=== PATIENT | male | born 1945 | race Caucasian/White ===

== ENCOUNTER 2018-01-28 08:54 | Inpatient (IN) | payer MEDICARE, OTHER ==
[2018-01-28] MEDS ORDERED: ONDANSETRON 4 MG/2 ML VIAL IVP STA ×2 (08:59→12:11)
[2018-01-28] MEDS ORDERED: FAMOTIDINE 20 MG/2 ML VIAL IV STA (08:59)
[2018-01-28] MEDS ORDERED: SODIUM CHLORIDE 0.9% 1,000 ML IV STA (08:59)
[2018-01-28 09:28] LABS: Basophils % (A) 0 %; Eosinophils # (A) 0.3 k/uL (0-0.7); Eosinophils % (A) 1 %; HCT 47.6 % (39.0-53.0); HGB 15.9 gm/dL (13.0-17.5); Lymphocytes # (A) 1.9 k/uL (1.0-4.8); Lymphocytes % (A) 10 %; MCH 30.9 pg (25.0-35.0); MCHC 33.3 g/dL (31.0-37.0); MCV 92.7 fL (80.0-100.0); Mean Platelet Volume 7.3; Monocytes # (A) 0.8 k/uL (0-1.0); Monocytes % (A) 4 %; Neutrophils # (A) 15.8 k/uL (1.3-7.7); Neutrophils % (A) 84 %; Platelet Count 319 k/uL (150-450); RBC 5.14 m/uL (4.30-5.90); RDW 13.5 % (11.5-15.5); WBC 18.9 k/uL (3.8-10.6)
[2018-01-28 09:34] LABS: ALT 29 U/L (21-72); AST 29 U/L (17-59); Albumin 3.8 g/dL (3.5-5.0); Alkaline Phosphatase 64 U/L (38-126); Anion Gap 10 mmol/L; Blood Urea Nitrogen 16 mg/dL (9-20); Carbon Dioxide 27 mmol/L (22-30); Chloride 105 mmol/L (98-107); Glucose 182 mg/dL (74-99); Potassium 5.1 mmol/L (3.5-5.1); Sodium 142 mmol/L (137-145); Total Bilirubin 0.7 mg/dL (0.2-1.3); Total Protein 6.5 g/dL (6.3-8.2)
[2018-01-28 09:41] LABS: INR 1.1 (<1.2); Partial Thromboplastin Time 21.9 sec (22.0-30.0); Prothrombin Time 10.9 sec (9.0-12.0)
--- NOTE | 2018-01-28 09:52 | ED ---
General Adult HPI - General Chief complaint: Nausea/Vomiting/Diarrhea Stated complaint: nausea, vomiting, poss food poisening Time Seen by Provider: 01/28/18 08:56 Source: patient, RN notes reviewed Mode of arrival: EMS - History of Present Illness Initial comments: Patient 72-year-old male presenting to the emergency room today by EMS, with chief complaint of symptoms of nausea vomiting started approximately midnight. Does admit to eating out last night. States woke up approximately midnight with feeling nauseous. States had approximately 3 or 4 episodes of vomiting. States he had a small amount of diarrhea. Patient does admit to cramping throughout the abdomen. Patient denies any other complaints at this time. Patient denies any recent fever, chills, shortness of breath, chest pain, back pain, numbness or tingling, dysuria or hematuria, constipation, headaches or visual changes, or any other complaints. - Related Data Home Medications Medication Instructions Recorded Confirmed Gabapentin [Neurontin] 300 mg PO DAILY 01/28/18 01/28/18 Simvastatin [Zocor] 10 mg PO HS 01/28/18 01/28/18 Allergies Allergy/AdvReac Type Severity Reaction Status Date / Time Penicillins Allergy Rash/Hives Verified 01/28/18 09:04 Review of Systems ROS Statement: Those systems with pertinent positive or pertinent negative responses have been documented in the HPI. ROS Other: All systems not noted in ROS Statement are negative. Past Medical History Past Medical History: Hyperlipidemia, Pneumonia History of Any Multi-Drug Resistant Organisms: MRSA Date of last positivie culture/infection: 2011 MDRO Source:: hand right Past Surgical History: Hernia Repair Past Psychological History: No Psychological Hx Reported Smoking Status: Former smoker Past Alcohol Use History: None Reported, Rare General Exam - General Exam Comments Initial Comments: General: The patient is awake and alert, in moderate distress. Eye: Pupils are equal, round and reactive to light, extra-ocular movements are intact. No nystagmus. There is normal conjunctiva bilaterally. No signs of icterus. Ears, nose, mouth and throat: There are moist mucous membranes and no oral lesions. Neck: The neck is supple, there is no tenderness or JVD. Cardiovascular: There is a regular rate and rhythm. No murmur, rub or gallop is appreciated. Respiratory: Lungs are clear to auscultation, respirations are non-labored, breath sounds are equal. No wheezes, stridor, rales, or rhonchi. Gastrointestinal: Mild diffuse tenderness throughout the abdomen. No rebound, guarding, CVA tenderness Musculoskeletal: Normal ROM, no tenderness. Strength 5/5. Sensation intact. Pulses equal bilaterally 2+. Neurological: A&O x 3. CN II-XII intact, There are no obvious motor or sensory deficits. Coordination appears grossly intact. Speech is normal. Skin: Skin is warm and dry and no rashes or lesions are noted. Psychiatric: Cooperative, appropriate mood & affect, normal judgment. Course Vital Signs 01/28/18 01/28/18 01/28/18 08:57 09:53 12:11 Temperature 98.1 F Pulse Rate 75 92 Respiratory 18 18 Rate Blood Pressure 153/66 104/57 O2 Sat by Pulse 95 98 Oximetry Medical Decision Making - Medical Decision Making Patient's labs are been reviewed does show an 18,000 white count. Amylase lipase are elevated. Patient's ultrasound shows no evidence for gallstones. Normal common bile duct. Patient reexamined shows no signs of stresses better here in emergency room. Patient will be admitted for acute pancreatitis. Patient's CT of the abdomen and pelvis does reveal evidence for pancreatic tenderness possible admission around the clock. Patient was started on PPI. Continued on IV fluids, pain medication. He ended to the hospital with consult to GI. - Lab Data Result diagrams: 01/28/18 09:18 01/28/18 09:18 Lab Results 01/28/18 01/28/18 01/28/18 Range/Units 09:18 09:18 09:18 WBC 18.9 H (3.8-10.6) k/uL RBC 5.14 (4.30-5.90) m/uL Hgb 15.9 (13.0-17.5) gm/dL Hct 47.6 (39.0-53.0) % MCV 92.7 (80.0-100.0) fL MCH 30.9 (25.0-35.0) pg MCHC 33.3 (31.0-37.0) g/dL RDW 13.5 (11.5-15.5) % Plt Count 319 (150-450) k/uL Neutrophils % 84 % Lymphocytes % 10 % Monocytes % 4 % Eosinophils % 1 % Basophils % 0 % Neutrophils # 15.8 H (1.3-7.7) k/uL Lymphocytes # 1.9 (1.0-4.8) k/uL Monocytes # 0.8 (0-1.0) k/uL Eosinophils # 0.3 (0-0.7) k/uL Basophils # 0.0 (0-0.2) k/uL PT 10.9 (9.0-12.0) sec INR 1.1 (<1.2) APTT 21.9 L (22.0-30.0) sec Sodium 142 (137-145) mmol/L Potassium 5.1 (3.5-5.1) mmol/L Chloride 105 (98-107) mmol/L Carbon Dioxide 27 (22-30) mmol/L Anion Gap 10 mmol/L BUN 16 (9-20) mg/dL Creatinine 1.04 (0.66-1.25) mg/dL Est GFR (CKD-EPI)AfAm 82 (>60 ml/min/1.73 sqM) Est GFR (CKD-EPI)NonAf 71 (>60 ml/min/1.73 sqM) Glucose 182 H (74-99) mg/dL Calcium 9.0 (8.4-10.2) mg/dL Total Bilirubin 0.7 (0.2-1.3) mg/dL AST 29 (17-59) U/L ALT 29 (21-72) U/L Alkaline Phosphatase 64 (38-126) U/L Total Protein 6.5 (6.3-8.2) g/dL Albumin 3.8 (3.5-5.0) g/dL Amylase 3077 H* (30-110) U/L Lipase >35053 H (23-300) U/L Urine Color Urine Appearance (Clear) Urine pH (5.0-8.0) Ur Specific [place] (1.001-1.035) Urine Protein (Negative) Urine Glucose (UA) (Negative) Urine Ketones (Negative) Urine Blood (Negative) Urine Nitrite (Negative) Urine Bilirubin (Negative) Urine Urobilinogen (<2.0) mg/dL Ur Leukocyte Esterase (Negative) 01/28/18 Range/Units 11:15 WBC (3.8-10.6) k/uL RBC (4.30-5.90) m/uL Hgb (13.0-17.5) gm/dL Hct (39.0-53.0) % MCV (80.0-100.0) fL MCH (25.0-35.0) pg MCHC (31.0-37.0) g/dL RDW (11.5-15.5) % Plt Count (150-450) k/uL Neutrophils % % Lymphocytes % % Monocytes % % Eosinophils % % Basophils % % Neutrophils # (1.3-7.7) k/uL Lymphocytes # (1.0-4.8) k/uL Monocytes # (0-1.0) k/uL Eosinophils # (0-0.7) k/uL Basophils # (0-0.2) k/uL PT (9.0-12.0) sec INR (<1.2) APTT (22.0-30.0) sec Sodium (137-145) mmol/L Potassium (3.5-5.1) mmol/L Chloride (98-107) mmol/L Carbon Dioxide (22-30) mmol/L Anion Gap mmol/L BUN (9-20) mg/dL Creatinine (0.66-1.25) mg/dL Est GFR (CKD-EPI)AfAm (>60 ml/min/1.73 sqM) Est GFR (CKD-EPI)NonAf (>60 ml/min/1.73 sqM) Glucose (74-99) mg/dL Calcium (8.4-10.2) mg/dL Total Bilirubin (0.2-1.3) mg/dL AST (17-59) U/L ALT (21-72) U/L Alkaline Phosphatase (38-126) U/L Total Protein (6.3-8.2) g/dL Albumin (3.5-5.0) g/dL Amylase (30-110) U/L Lipase (23-300) U/L Urine Color Light Yellow Urine Appearance Clear (Clear) Urine pH 7.5 (5.0-8.0) Ur Specific [place] 1.008 (1.001-1.035) Urine Protein Negative (Negative) Urine Glucose (UA) Trace H (Negative) Urine Ketones Negative (Negative) Urine Blood Negative (Negative) Urine Nitrite Negative (Negative) Urine Bilirubin Negative (Negative) Urine Urobilinogen <2.0 (<2.0) mg/dL Ur Leukocyte Esterase Negative (Negative) Disposition Clinical Impression: Acute pancreatitis Disposition: ADMITTED IP TO THIS HOSP Condition: Stable Is patient prescribed a controlled substance at d/c from ED?: No Referrals: [facility],Clinic [Primary Care Provider] - 1-2 days Time of Disposition: 11:22
[2018-01-28 10:00] LABS: Amylase 3077 U/L (30-110)
[2018-01-28 10:01] LABS: Lipase >20000 U/L (23-300)
[2018-01-28] MEDS ORDERED: ACETAMINOPHEN IV (For NPO) 1,000 MG in EMPTY BAG 1 BAG IVPB STA (10:01)
--- NOTE | 2018-01-28 10:12 | XR ---
EXAMINATION TYPE: XR KUB DATE OF EXAM: 01/28/2018 COMPARISON: NONE HISTORY: Abdominal pain and vomiting TECHNIQUE: One view abdominal series FINDINGS: The osseous structures are intact. The bowel gas pattern is nonspecific. Upper abdomen is not includ ed on exam. Hypertrophic changes of the spine noted.. IMPRESSION: 1. Nonspecific abdomen.
--- NOTE | 2018-01-28 11:00 | US ---
EXAMINATION TYPE: US abdomen limited DATE OF EXAM: 01/28/2018 COMPARISON: NONE CLINICAL HISTORY: Pain. Abdomen pain and N/V x 1 day EXAM MEASUREMENTS: Liver Length: 15.3 cm Gallbladder Wall: 0.3 cm CBD: 0.4 cm Right Kidney: 11.3 x 5.7 x 5.0 cm Technically difficult and very limited study due to large amount of overlying bowel, exam scanned m ostly intercostally, and patient unable to hold breath due to coughing Pancreas: obscured by overlying midline bowel Liver: scanned intercostally, 2.1 x 1.8 x 1.6cm cystic area seen right lobe Gallbladder: no stones seen in visualized portion, visualized portion of wall measures in upper limi ts of normal Evidence for sonographic Zuleta's sign: yes CBD: visualized portions appear wnl Right Kidney: visualized portions appear wnl IMPRESSION: 1. Limited exam demonstrates a hepatic cyst with no definite evidence of gallstone.
[2018-01-28 11:21] LABS: Appearance,Urine Clear (Clear); Bilirubin,Urine Negative (Negative); Blood,Urine Negative (Negative); Color,Urine Light Yellow; Glucose,Urine (UA) Trace (Negative); Ketones,Urine Negative (Negative); Leukocyte Esterase,Urine Negative (Negative); Nitrite,Urine Negative (Negative); PH, Urine 7.5 (5.0-8.0); Protein,Urine Negative (Negative); Specific Gravity,Urine 1.008 (1.001-1.035); Urobilinogen,Urine <2.0 mg/dL (<2.0)
[2018-01-28] MEDS ORDERED: MORPHINE SULFATE 2 MG/ML SYRINGE IVP STA (12:11)
--- NOTE | 2018-01-28 12:55 | CT ---
EXAMINATION TYPE: CT abdomen pelvis w con DATE OF EXAM: 01/28/2018 COMPARISON: NONE HISTORY: nausea, vomitting and possiible food poisoning CT DLP: 896.10 mGycm Automated exposure control for dose reduction was used. CONTRAST: CT scan of the abdomen pelvis is performed with IV Contrast, patient injected with 100 ml mL of Isovu e 300. FINDINGS- LUNG BASES-subsegmental changes involving the lung bases suggestive of atelectasis. Tiny pericardial effusion is seen in the heart size is enlarged. Atherosclerotic change of the aorta.. LIVER/GB-hypodensities within the liver are suggestive of hepatic cysts.. PANCREAS-there is peripancreatic inflammatory change and small amount of fluid. Pancreatitis is favor ed over peptic ulcer disease but should be correlated clinically. SPLEEN- No gross abnormality is seen. ADRENALS- No gross abnormality is seen. KIDNEYS/BLADDER- no hydronephrosis or nephrolithiasis. There is a small hypodensity in the anterior m argin of the left kidney too small to characterize.. BOWEL-bowel gas pattern is nonspecific. There is thickening of the wall the duodenum but there is ext ensive peripancreatic inflammatory changes.. LYMPH NODES- No greater than 1cm abdominal or pelvic lymph nodes are appreciated. OSSEOUS STRUCTURES-atrophic change of the spine.. OTHER- small fat-containing inguinal hernias noted. IMPRESSION- 1. Extensive peripancreatic inflammatory changes and small amount of fluid. Pancreatitis is the most likely etiology. There is inflammatory change also involves the duodenum, therefore, peptic ulcer di sease would also be in the differential diagnosis. No free air. Correlate clinically. 2. Hepatic cysts
[2018-01-28] MEDS ORDERED: NALOXONE 0.4 MG/ML 1 ML VIAL IV PRN (13:01)
[2018-01-28] MEDS ORDERED: PANTOPRAZOLE 40 MG/10 ML VIAL IVP STA (13:07)
[2018-01-28] MEDS: SODIUM CHLORIDE 0.9% 1,000 ML IV SCH ×2 (13:32→22:14)
[2018-01-28] MEDS: HYDROcodone/APAP 5-325MG 1 EACH TAB PO PRN ×3 (15:13→22:40)
[2018-01-28 16:26] VITALS: BMI 25.0
[2018-01-28] MEDS: ONDANSETRON 4 MG/2 ML VIAL IVP PRN (16:38)
[2018-01-28] MEDS: MORPHINE SULFATE 2 MG/ML SYRINGE IV PRN (19:55)
[2018-01-28] MEDS: GABAPENTIN 300 MG CAP PO SCH (21:08)
[2018-01-29] MEDS: MORPHINE SULFATE 2 MG/ML SYRINGE IV PRN ×5 (00:07→23:19)
[2018-01-29] MEDS: ONDANSETRON 4 MG/2 ML VIAL IVP PRN (00:14)
[2018-01-29] MEDS: SODIUM CHLORIDE 0.9% 1,000 ML IV SCH ×3 (05:40→20:16)
[2018-01-29] MEDS: PANTOPRAZOLE 40 MG/10 ML VIAL IVP SCH (08:06)
[2018-01-29] MEDS: HYDROcodone/APAP 5-325MG 1 EACH TAB PO PRN (08:37)
[2018-01-29 08:51] LABS: HCT 50.9 % (39.0-53.0); HGB 16.3 gm/dL (13.0-17.5); MCHC 32.1 g/dL (31.0-37.0); MCV 93.4 fL (80.0-100.0); Mean Platelet Volume 7.6; Platelet Count 304 k/uL (150-450); RBC 5.45 m/uL (4.30-5.90); RDW 13.6 % (11.5-15.5)
[2018-01-29 08:55] LABS: WBC 43.1 k/uL (3.8-10.6)
[2018-01-29 08:58] LABS: Albumin 3.3 g/dL (3.5-5.0); Calcium 7.9 mg/dL (8.4-10.2); Potassium 4.5 mmol/L (3.5-5.1); Total Bilirubin 0.8 mg/dL (0.2-1.3); Total Protein 5.9 g/dL (6.3-8.2)
[2018-01-29 09:07] LABS: Band Neutrophils % 4 %; Lymphocytes # (M) 0.43 k/uL (1.0-4.8); Monocytes # (M) 1.29 k/uL (0-1.0); Neutrophils % (M) 92 %; Nucleated Red Blood Cells 0 /100 WBC (0-0); Total Cells Counted 200
[2018-01-29] MEDS: PIPERACILLIN-TAZOBACTAM 3.375 GM in DEXTROSE/WATER 1 50ML.BAG IVPB SCH ×2 (11:16→17:14)
[2018-01-29] MEDS: metroNIDAZOLE-NS PMX 500 MG in SALINE 1 100ML.BAG IVPB SCH ×3 (11:17→23:03)
--- NOTE | 2018-01-29 12:55 | P.HPIM ---
History of Present Illness H&P Date: 01/29/18 Chief Complaint: Nausea, vomiting and abdominal pain Patient 72-year-old male presenting to the emergency room today by EMS, with chief complaint of symptoms of nausea vomiting started approximately midnight. Does admit to eating out last night. States woke up approximately midnight with feeling nauseous. States had approximately 3 or 4 episodes of vomiting. States he had a small amount of diarrhea. Patient does admit to cramping throughout the abdomen. Patient denies any other complaints at this time. Patient denies any recent fever, chills, shortness of breath, chest pain, back pain, numbness or tingling, dysuria or hematuria, constipation, headaches or visual changes, or any other complaints. Review of Systems Constitutional: Reports anorexia, Reports poor appetite, Reports weakness, Denies fever Eyes: denies blurred vision, denies discharge, denies photophobia Ears, nose, mouth and throat: Denies epistaxis, Denies hoarseness Cardiovascular: Denies chest pain, Denies dyspnea on exertion, Denies high blood pressure, Denies irregular heart beat, Denies shortness of breath, Denies syncope Respiratory: Denies cough with sputum, Denies wheezing Gastrointestinal: Reports abdominal pain, Reports indigestion, Reports loss of appetite, Reports nausea, Reports vomiting, Denies coffee ground emesis, Denies diarrhea, Denies melena Genitourinary: Denies dysuria, Denies hematuria, Denies incontinence, Denies polyuria Musculoskeletal: Denies leg numbness/tingling, Denies morning stiffness Integumentary: Denies change in hair/nails, Denies darkening of skin, Denies rash Neurological: Denies change in smell/taste, Denies change in speech, Denies confusion, Denies gait dysfunction Psychiatric: Reports anxiety, Reports irritability, Denies confusion Endocrine: Reports palpitations, Denies cold intolerance, Denies heat intolerance Hematologic/Lymphatic: Denies easy bleeding, Denies easy bruising Past Medical History Past Medical History: Hyperlipidemia, Osteoarthritis (OA), Pneumonia History of Any Multi-Drug Resistant Organisms: MRSA Date of last positivie culture/infection: 2011 MDRO Source:: hand right Past Surgical History: Hernia Repair Past Psychological History: No Psychological Hx Reported Smoking Status: Former smoker Past Alcohol Use History: Rare Past Drug Use History: None Reported - Past Family History Father Additional Family Medical History / Comment(s): dementia, at age 83 Mother Family Medical History: Hyperlipidemia Additional Family Medical History / Comment(s): heart valve proble per patient, at age 96 Medications and Allergies Home Medications Medication Instructions Recorded Confirmed Type Atorvastatin [Lipitor] 10 mg PO HS 01/28/18 01/28/18 History Gabapentin [Neurontin] 300 mg PO HS 01/28/18 01/28/18 History Allergies Allergy/AdvReac Type Severity Reaction Status Date / Time Penicillins Allergy Rash/Hives Verified 01/28/18 13:17 Physical Exam Vitals: Vital Signs Temp Pulse Pulse Resp BP BP Pulse Ox 01/29/18 06:03 92 L 01/29/18 06:02 99.2 F 107 H 16 98/58 87 L 01/29/18 02:06 94 L 01/29/18 02:00 88 L 01/28/18 23:00 98.6 F 108 H 18 150/72 88 L 01/28/18 16:20 97.3 F L 86 18 122/64 93 L 01/28/18 16:00 18 01/28/18 15:57 97 F L 87 18 122/65 95 01/28/18 13:41 96.8 F L 90 18 125/59 95 Intake and Output 01/28/18 01/29/18 01/29/18 22:59 06:59 14:59 Output Total 75 125 Balance -75 -125 Output: Urine 75 125 Other: # Voids 0 0 # Bowel Movements 0 0 1 Weight 83.915 kg - Constitutional General appearance: Present: average body habitus, cooperative, no acute distress - EENT Eyes: Present: anicteric sclerae, EOMI, PERRLA, normal appearance ENT: Present: hearing grossly normal, normal oropharynx Ears: bilateral: normal - Neck Neck: Present: normal ROM. Absent: lymphadenopathy, rigidity, thyromegaly Carotids: negative: bruit present Thyroid: bilateral: normal size, negative: enlarged, nodule - Respiratory Respiratory: bilateral: CTA, negative: rales, rhonchi, wheezing - Cardiovascular Rhythm: regular Heart sounds: normal: S1, S2 Abnormal Heart Sounds: Absent: systolic murmur, diastolic murmur - Gastrointestinal General gastrointestinal: Present: normal bowel sounds, soft. Absent: distended , organomegaly; marked diffuse tenderness - Genitourinary Genitourinary Comment(s): deferred - Integumentary Integumentary: Present: normal turgor. Absent: jaundiced, rash, ulcer - Neurologic Neurologic: Present: CNII-XII intact. Absent: focal deficits - Musculoskeletal Musculoskeletal: Present: gait normal, strength equal bilaterally - Psychiatric Psychiatric: Present: A&O x's 3, appropriate affect, intact judgment & insight Results CBC & Chem 7: 01/29/18 07:50 01/29/18 07:50 Labs: Abnormal Lab Results - Last 24 Hours (Table) 01/29/18 01/29/18 Range/Units 07:50 07:50 WBC 43.1 H* (3.8-10.6) k/uL Neutrophils # (Manual) 41.30 H (1.3-7.7) k/uL Lymphocytes # (Manual) 0.43 L (1.0-4.8) k/uL Monocytes # (Manual) 1.29 H (0-1.0) k/uL Calcium 7.9 L (8.4-10.2) mg/dL Total Protein 5.9 L (6.3-8.2) g/dL Albumin 3.3 L (3.5-5.0) g/dL Lipase 5810 H (23-300) U/L Thrombosis Risk Factor Assmnt - Choose All That Apply Other Risk Factors: Yes Each Risk Factor Represents 2 Points: Age 61-74 years Thrombosis Risk Factor Assessment Total Risk Factor Score: 2 Thrombosis Risk Factor Assessment Level: Low Risk Assessment and Plan Assessment: 1. Acute pancreatitis - We will admit patient to general medical floor - We will start patient on IV fluids; IV Pepcid - We will monitor his lipase closely - GI consulted for further recommendations 2. Leukocytosis possibly stress-induced versus sepsis - Patient's white blood count has escalated to 43,000; patient does have a low- grade temperature - We will monitor CBC closely and initiate sepsis workup - We will start patient on IV Unasyn and Flagyl - Consult ID for further recommendations 3. Hyperglycemia possibly secondary to 1 - We will monitor Accu-Cheks closely with insulin sliding scale if needed 4. Hyperlipidemia; we will hold on home dose of Zocor 10 mg by mouth daily at bedtime 5. DVT prophylaxis CODE STATUS; full code Time with Patient: Greater than 30
[2018-01-29] MEDS: GABAPENTIN 300 MG CAP PO SCH (20:17)
[2018-01-29] MEDS: ACETAMINOPHEN TAB 325 MG TAB PO PRN (23:20)
[2018-01-30] MEDS: PIPERACILLIN-TAZOBACTAM 3.375 GM in DEXTROSE/WATER 1 50ML.BAG IVPB SCH ×3 (02:29→18:58)
--- NOTE | 2018-01-30 02:49 | CONS ---
CONSULTATION DATE OF SERVICE: 01/29/2018. REASON FOR CONSULTATION: Leukocytosis and pancreatitis. HISTORY OF PRESENT ILLNESS: The patient is a 72-year-old male who was brought into the ER with chief complaints of nausea, vomiting that approximately started around midnight before presenting to the hospital. The pain has been mostly in the abdominal area. He describes the pain to be more of a cramping in nature and almost 10/10 in severity. The patient did have associated nausea and had about 3 episodes of vomiting before coming to the hospital with no blood or mucus in it. The patient also had loose stools. The patient denies any high-grade fever, rigors or chills. Denies having any chest pain or shortness of breath or any cough. The patient did admit to eating outside nothing out of the ordinary. On arrival to the ER the patient was noticed to be afebrile. He did have elevated white count of 18.9, though his amylase was 3077 and lipase was more than 20,000. UA has been negative. The patient did have an ultrasound of the gallbladder area which did not show any gallstones and CBD was within normal limits. CT abdomen and pelvis which was done with IV contrast did show peripancreatic inflammation changes with a small amount of fluid, pancreatitis is favored or peptic ulcer disease. The patient has been started on Flagyl because of his PENICILLIN ALLERGY only. The patient who did have a white count of 18.9 yesterday, did jump to 43.1 that prompted this infectious disease consultation. REVIEW OF SYSTEMS: Constitutional: Positive for weakness. Some chills but no high-grade fever. Eyes: No complaint. ENT: No complaint. Respiratory: No complaint. Cardiovascular: No complaint. Genitourinary: No complaint. GASTROINTESTINAL: As per HPI. Musculoskeletal: No complaint. Integumentary: No complaint. Psychological: No complaint. Endocrine no complaint. Neurologic no complaint. PAST MEDICAL HISTORY: Significant for hyperlipidemia, osteoarthritis, pneumonia, previous history of MRSA infection. PAST SURGICAL HISTORY: Hernia repair. SOCIAL HISTORY: Remote history of smoking. Rarely drinks. No drug use. FAMILY HISTORY: Father history of dementia, at age of 83. Mother history of hyperlipidemia, at age of 96. ALLERGIES: TO PENICILLIN when he was a child. However, dementia subsequently has started taken amoxicillin without any problem. Clinically doubt true penicillin allergy. MEDICATION: Medications include the patient is currently on Tylenol, [place], Neurontin, Ativan, Flagyl, morphine sulfate, Narcan, Zofran, Protonix, and Zosyn early this morning. EXAMINATION: Blood pressure is 127/72 with a pulse of 114, temperature 98.5. He is 90% on 2 L nasal cannula. General description is an elderly male lying in bed in no distress. No tachypnea or accessory muscles of respiration use. HEENT: Shows no pallor or scleral icterus. Oral mucous membranes moist. No significantly erythema or thrush. Neck trachea central. No thyromegaly. Lungs unlabored breathing, clear to auscultation anteriorly. No wheeze or crackles. Heart S1, S2. Regular rate and rhythm. ABDOMEN: Soft. He is tender in the epigastric area with no guarding. No rigidity. No organomegaly. EXTREMITIES: No edema of the feet. Skin examination: No rash or mass palpable. Neurological: Patient is awake, alert, oriented times three. Mood and affect normal. LABS: Hemoglobin 16.3 with white count 43,000 with a BUN of 15, creatinine 1.03. Amylase was 3000. Lipase more than 20,000. Repeat is 5800. A CT of the abdomen and pelvis report as mentioned above. DIAGNOSTIC IMPRESSION AND PLAN: 1. Patient presented in the hospital with significant abdominal pain along with nausea and vomiting. The patient is tender in the epigastric area. The patient who did have a elevated amylase, lipase, likely suggestive of acute pancreatitis on the basis of the clinical finding as well as the CT finding with some peripancreatic fluid, but no evidence of any abscess or pseudocyst formation. The patient currently with no fever. In view of the severe pancreatitis, we will need to cover for the enteric gram-negative both aerobes and anaerobes with no evidence of any cholecystitis or gallstones. 2. The patient describing his PENICILLIN ALLERGY, however, subsequently has taken amoxicillin. Clinically doubt true penicillin allergy. PLAN: 1. Zosyn 3.375 g q.8 hours along with IV Flagyl. 2. N.p.o. 3. We will follow up on his clinical condition to further adjust medication if needed. Thank you for this consultation. We will follow this patient along with you. MMODL / IJN: [id number] /
[2018-01-30] MEDS: SODIUM CHLORIDE 0.9% 1,000 ML IV SCH ×6 (05:27→17:03)
[2018-01-30] MEDS: HYDROcodone/APAP 5-325MG 1 EACH TAB PO PRN ×3 (06:28→17:32)
[2018-01-30] MEDS: metroNIDAZOLE-NS PMX 500 MG in SALINE 1 100ML.BAG IVPB SCH ×3 (06:33→17:02)
--- NOTE | 2018-01-30 07:28 | P.CONS ---
History of Present Illness - Reason for Consult Consult date: 01/29/18 Acute pancreatitis. - History of Present Illness The patient is a 72-year-old male who presented to the hospital via EMS with acute onset of abdominal pain that started around midnight associated with nausea and vomiting. The patient was found to have elevated amylase and lipase with normal liver enzymes. CT of the abdomen showed evidence of pancreatitis. The patient was admitted for further management. CT did not show any evidence of gallbladder disease or dilated common bile duct. The patient denied any history of alcohol use or any recent surgery, abdominal trauma or new medications. No recent infection or any abdominal symptoms to suggest peptic ulcer disease. Review of Systems Constitutional: Denies fever, chills, sweats, weight gain, or loss. HEENT: Negative for migraines, blurred vision or loss, earaches, drainage, tinnitus, oral mucosal lesions, dysphagia, or odynophagia. CARDIAC: Negative for chest pain, arrhythmias, or palpitation. RESPIRATORY: Negative for shortness of breath, hemoptysis, cough, or sputum production. GI: See HPI for pertinent findings. : Negative for hematuria, urgency, frequency, polyuria, or dysuria. MUSCULOSKELETAL: Negative for muscle aches, swelling, arthritis, and arthralgias. NEUROLOGIC: Negative for stroke or TIA. ENDOCRINE: Negative for thyroid problems. SKIN: Negative for rash or itching. PSYCHIATRIC: Negative history for depression and anxiety Past Medical History Past Medical History: Hyperlipidemia, Osteoarthritis (OA), Pneumonia History of Any Multi-Drug Resistant Organisms: MRSA Year Discovered:: 2011 MDRO Source:: hand right Past Surgical History: Hernia Repair Past Psychological History: No Psychological Hx Reported Smoking Status: Former smoker Past Alcohol Use History: Rare Past Drug Use History: None Reported - Past Family History Father Additional Family Medical History / Comment(s): dementia, at age 83 Mother Family Medical History: Hyperlipidemia Additional Family Medical History / Comment(s): heart valve proble per patient, at age 96 Medications and Allergies Home Medications Medication Instructions Recorded Confirmed Type Atorvastatin [Lipitor] 10 mg PO HS 01/28/18 01/28/18 History Gabapentin [Neurontin] 300 mg PO HS 01/28/18 01/28/18 History Allergies Allergy/AdvReac Type Severity Reaction Status Date / Time Penicillins Allergy Rash/Hives Verified 01/28/18 13:17 Physical Exam Vitals: Vital Signs Temp Pulse Pulse Resp BP BP Pulse Ox 01/29/18 06:03 92 L 01/29/18 06:02 99.2 F 107 H 16 98/58 87 L 01/29/18 02:06 94 L 01/29/18 02:00 88 L 01/28/18 23:00 98.6 F 108 H 18 150/72 88 L 01/28/18 16:20 97.3 F L 86 18 122/64 93 L 01/28/18 16:00 18 01/28/18 15:57 97 F L 87 18 122/65 95 01/28/18 13:41 96.8 F L 90 18 125/59 95 Intake and Output 01/28/18 01/29/18 01/29/18 22:59 06:59 14:59 Output Total 75 125 Balance -75 -125 Output: Urine 75 125 Other: # Voids 0 0 2 # Bowel Movements 0 0 1 Weight 83.915 kg General appearance: The patient is alert, oriented, in no acute distress. HET: Head is normocephalic and atraumatic. Pupils are equal and reactive. Oropharynx is clear without lesions. Neck: Supple without lymphadenopathy. Trachea midline. Heart: S1 S2. Regular rate and rhythm. Lungs: No crackles or wheezes are heard. Abdomen: Soft, very mild soreness in the midepigastrium, nondistended with bowel sounds. No peritoneal signs. No palpable organomegaly or masses. Extremities: Normal skin color and turgor. No cyanosis, rash, ulceration, clubbing, or edema. Radial and pedal pulses are 2/4 bilaterally. Neurological: No focal deficits. Strength and sensation are grossly intact. Results CBC & Chem 7: 01/29/18 07:50 01/29/18 07:50 Labs: Abnormal Lab Results - Last 24 Hours (Table) 01/29/18 01/29/18 Range/Units 07:50 07:50 WBC 43.1 H* (3.8-10.6) k/uL Neutrophils # (Manual) 41.30 H (1.3-7.7) k/uL Lymphocytes # (Manual) 0.43 L (1.0-4.8) k/uL Monocytes # (Manual) 1.29 H (0-1.0) k/uL Calcium 7.9 L (8.4-10.2) mg/dL Total Protein 5.9 L (6.3-8.2) g/dL Albumin 3.3 L (3.5-5.0) g/dL Lipase 5810 H (23-300) U/L Assessment and Plan Assessment: Acute pancreatitis with no clear etiology. Should keep in mind penetrating ulcer disease. In his age group malignancy should be considered despite the absence of any specific findings on CT. Plan: I agree with your current management. The patient is covered with antibiotics because of significant leukocytosis. Further plans will be made based on his course. I will discuss with you and follow with you with interest.
[2018-01-30] MEDS: PANTOPRAZOLE 40 MG/10 ML VIAL IVP SCH (07:46)
[2018-01-30 08:15] LABS: Amorphous Sediment,Urine Rare /hpf; Appearance,Urine Cloudy (Clear); Bilirubin,Urine Negative (Negative); Blood,Urine Small (Negative); Color,Urine Yellow; Glucose,Urine (UA) Negative (Negative); Hyaline Casts,Urine 1 /lpf (0-2); Ketones,Urine 1+ (Negative); Leukocyte Esterase,Urine Negative (Negative); Mucus,Urine Rare /hpf; Nitrite,Urine Negative (Negative); PH, Urine 5.5 (5.0-8.0); Protein,Urine 2+ (Negative); RBC,Urine 6 /hpf (0-5); Specific Gravity,Urine 1.028 (1.001-1.035); Urobilinogen,Urine <2.0 mg/dL (<2.0); WBC,Urine 3 /hpf (0-5)
--- NOTE | 2018-01-30 08:59 | P.PN ---
Subjective Progress Note Date: 01/30/18 Principal diagnosis: Severe pancreatitis Abdominal pain slightly improved. White count 43.1 yesterday. T-max 101.4 last night seen by ID. Receiving IV antibiotics. Morning chemistries pending. Objective - Vital Signs Vital signs: Vital Signs Temp 99.2 F 01/30/18 06:17 Pulse 106 H 01/30/18 06:17 Resp 16 01/30/18 06:17 BP 138/74 01/30/18 06:17 Pulse Ox 92 L 01/30/18 06:17 Intake & Output 01/29/18 01/30/18 01/30/18 18:59 06:59 18:59 Output Total 200 175 Balance -200 -175 Output: Urine 200 175 Other: # Voids 1 0 # Bowel Movements 1 - Exam General appearance: The patient is alert, oriented, in no acute distress. HET: Head is normocephalic and atraumatic. Pupils are equal and reactive. Oropharynx is clear without lesions. Neck: Supple without lymphadenopathy. Trachea midline. Heart: S1 S2. Regular rate and rhythm. Lungs: No crackles or wheezes are heard. Abdomen: Soft, midepigastric tenderness, nondistended with bowel sounds. No peritoneal signs. No palpable organomegaly or masses. Extremities: Normal skin color and turgor. No cyanosis, rash, ulceration, clubbing, or edema. Radial and pedal pulses are 2/4 bilaterally. Neurological: No focal deficits. Strength and sensation are grossly intact. - Labs CBC & Chem 7: 01/29/18 07:50 01/29/18 07:50 Labs: Abnormal Lab Results - Last 24 Hours (Table) 01/29/18 01/29/18 01/30/18 Range/Units 07:50 07:50 05:30 Neutrophils # (Manual) 41.30 H (1.3-7.7) k/uL Lymphocytes # (Manual) 0.43 L (1.0-4.8) k/uL Monocytes # (Manual) 1.29 H (0-1.0) k/uL Calcium 7.9 L (8.4-10.2) mg/dL Total Protein 5.9 L (6.3-8.2) g/dL Albumin 3.3 L (3.5-5.0) g/dL Lipase 5810 H (23-300) U/L Urine Protein 2+ H (Negative) Urine Ketones 1+ H (Negative) Urine Blood Small H (Negative) Urine RBC 6 H (0-5) /hpf Amorphous Sediment Rare H (None) /hpf Urine Mucus Rare H (None) /hpf Assessment and Plan (1) Acute pancreatitis Narrative/Plan: Severe sepsis Current Visit: Yes Status: Acute Code(s): K85.90 - ACUTE PANCREATITIS [facility] NECROSIS OR INFECTION[facility] Code(s): 469316913 Plan: 1. IV fluids 150 mL an hour. IV antibiotics. Daily CBC pancreatic enzymes. 2. Nothing by mouth except medications ice chips. Protonix 40 mg IV daily. Consideration for inpatient EGD prior to discharge rule out peptic ulcer disease etiology. We'll follow closely with you. Assessment and plan a care discussed with Dr. Westbrook
[2018-01-30] MEDS: MORPHINE SULFATE 2 MG/ML SYRINGE IV PRN ×3 (09:39→20:48)
[2018-01-30 10:06] LABS: Basophils % (A) 0 %; Eosinophils # (A) 0.1 k/uL (0-0.7); Eosinophils % (A) 0 %; HCT 44.4 % (39.0-53.0); HGB 14.5 gm/dL (13.0-17.5); Lymphocytes # (A) 0.4 k/uL (1.0-4.8); Lymphocytes % (A) 1 %; MCH 30.4 pg (25.0-35.0); MCHC 32.6 g/dL (31.0-37.0); MCV 93.3 fL (80.0-100.0); Mean Platelet Volume 7.9; Monocytes # (A) 1.3 k/uL (0-1.0); Monocytes % (A) 3 %; Neutrophils # (A) 37.8 k/uL (1.3-7.7); Neutrophils % (A) 95 %; Platelet Count 225 k/uL (150-450); RBC 4.76 m/uL (4.30-5.90); RDW 13.5 % (11.5-15.5)
[2018-01-30 10:17] LABS: WBC 39.8 k/uL (3.8-10.6)
[2018-01-30 10:25] LABS: Albumin 2.5 g/dL (3.5-5.0); Bilirubin, Delta 0.3 mg/dL (0.0-0.2); Bilirubin,Unconjugated 0.5 mg/dL (0.0-1.1); Calcium 7.2 mg/dL (8.4-10.2); Potassium 4.2 mmol/L (3.5-5.1); Total Bilirubin 0.8 mg/dL (0.2-1.3); Total Protein 4.8 g/dL (6.3-8.2)
[2018-01-30] MEDS: LORazepam 2 MG/ML INJ IV PRN (18:54)
[2018-01-30] MEDS: GABAPENTIN 300 MG CAP PO SCH (20:48)
--- NOTE | 2018-01-30 21:53 | PN ---
PROGRESS NOTE DATE OF SERVICE: 01/30/2018. REASON FOR FOLLOWUP: Acute pancreatitis with sepsis. INTERVAL HISTORY: The patient did spike a fever of 101.4 degrees Fahrenheit. He is afebrile since then. He did mention that abdominal pain has slightly improved. Denies having any chest pain. No shortness of breath or cough. No abdominal pain or any diarrhea. EXAMINATION: Blood pressure is 138/79, pulse of 94, temperature 98.1, T-max of 101.4. He is 91% on 2L nasal cannula. General description is an elderly male lying in bed in no distress. RESPIRATORY SYSTEM: Unlabored breathing. Clear to auscultation anteriorly. HEART: S1, S2. Regular rate and rhythm. ABDOMEN: Soft, mildly distended in the epigastric area. No guarding. No rigidity. EXTREMITIES: No edema of feet. LABS: Hemoglobin 14.5, white count slightly down to 39.8. BUN of 22, creatinine is 1.19. Amylase and lipase have improved. Cultures are currently pending. DIAGNOSTIC IMPRESSION AND PLAN: Patient with sepsis, source is acute pancreatitis. The patient at this time is covered with Zosyn. Will monitor his cultures closely and continue supportive care. MMODL / IJN: [id number] /
[2018-01-30 23:33] LABS: Glucose,Whole Blood 87 mg/dL (75-99)
[2018-01-31 00:05] LABS: ABG Base Excess 0.3 mmol/L; ABG HCO3 25 mmol/L (21-25); ABG Oxygen Saturation 94.8 % (94-97); ABG PCO2 40 mmHg (35-45); ABG PO2 67 mmHg (83-108); ABG TCO2 26 mmol/L (19-24)
[2018-01-31] MEDS: LORazepam 2 MG/ML INJ IV PRN ×3 (00:17→11:12)
[2018-01-31] MEDS: metroNIDAZOLE-NS PMX 500 MG in SALINE 1 100ML.BAG IVPB SCH ×5 (00:19→23:51)
[2018-01-31] MEDS: SODIUM CHLORIDE 0.9% 1,000 ML IV SCH ×4 (01:43→21:44)
--- NOTE | 2018-01-31 02:03 | CT ---
EXAMINATION TYPE: CT brain wo con DATE OF EXAM: 01/31/2018 COMPARISON: NONE HISTORY: AMS CT DLP: 1110.20 mGycm Automated exposure control for dose reduction was used. FINDINGS: Ventricles of normal size. There is no mass effect nor midline shift. There is no sign of intracrania l hemorrhage. Calvarium is intact. IMPRESSION: HEAD CT SCAN APPEARS NORMAL FOR AGE.
--- NOTE | 2018-01-31 02:05 | CT ---
EXAMINATION TYPE: CT chest angio for PE DATE OF EXAM: 01/31/2018 COMPARISON: NONE HISTORY: 13.73 D-dimer with SOB CT DLP: 590.90 mGycm Automated exposure control for dose reduction was used. CONTRAST: CT Chest for pulmonary embolism performed with with IV Contrast, patient injected with 75 mL of Isovu e 370. FINDINGS: There are 3-D post processed images. There are bilateral pleural effusions with basilar pulmonary infiltrates and atelectasis. There is sm all pericardial effusion. Ascending aorta measures 3.8 cm. There is no evidence of dissection. I see no filling defects in the pulmonary arteries. There is no mediastinal adenopathy. There are no hilar masses. IMPRESSION: No evidence of pulmonary embolism. Pleural effusions and small pericardial effusion. Mild basilar pulmonary infiltrates and atelectasis.
[2018-01-31] MEDS: HYDROcodone/APAP 5-325MG 1 EACH TAB PO PRN ×2 (02:43→09:42)
[2018-01-31] MEDS: PIPERACILLIN-TAZOBACTAM 3.375 GM in DEXTROSE/WATER 1 50ML.BAG IVPB SCH ×3 (02:43→17:58)
[2018-01-31] MEDS ORDERED: HEPARIN SODIUM,PORCINE 5,000 UNIT/ML 1 ML VIAL IV STA (04:41)
--- NOTE | 2018-01-31 06:58 | US ---
EXAM: US Duplex Bilateral Lower Extremity Veins CLINICAL HISTORY: ITS.REASON US Reason: Elevated D-Dimer TECHNIQUE: Real-time duplex ultrasound scan of the bilateral lower extremity veins integrating B-mode two-dimensional vascular structure, Doppler spectral analysis, color flow Doppler imaging and compression. COMPARISON: None. FINDINGS: Right deep veins: Unremarkable. No DVT in the right common femoral, femoral, proximal deep femoral or popliteal veins. The veins demonstrate normal color flow, are normally compressible, with normal phasic flow and/or augmentation response. Right superficial veins: Unremarkable. No thrombus in the visualized right great saphenous vein. Left deep veins: Unremarkable. No DVT in the left common femoral, femoral, proximal deep femoral or popliteal veins. The veins demonstrate normal color flow, are normally compressible, with normal phasic flow and/or augmentation response. Left superficial veins: Unremarkable. No thrombus in the visualized left great saphenous vein. Soft tissues: No acute findings. No popliteal cyst. Other findings: IMPRESSION: No acute findings.
[2018-01-31] MEDS: HEPARIN SODIUM,PORCINE 5,000 UNIT/ML 1 ML VIAL SQ SCH ×2 (07:10→21:43)
[2018-01-31] MEDS: PANTOPRAZOLE 40 MG/10 ML VIAL IVP SCH (07:11)
--- NOTE | 2018-01-31 08:14 | P.PN ---
Subjective Progress Note Date: 01/31/18 Principal diagnosis: Severe pancreatitis Increased confusion yesterday last night elevated d-dimer. CTA venous Dopplers negative for PE DVT. Patient states his 1987 this morning. Abdominal pain improving. Afebrile. Morning chemistries pending. Voiding well. Objective - Vital Signs Vital signs: Vital Signs Temp 97.2 F L 01/31/18 06:36 Pulse 111 H 01/31/18 06:36 Resp 18 01/31/18 06:36 BP 161/88 01/31/18 06:36 Pulse Ox 93 L 01/31/18 06:36 Intake & Output 01/30/18 01/31/18 01/31/18 18:59 06:59 18:59 Weight 83.915 kg Other: # Voids 1 2 # Bowel Movements 1 - Exam General appearance: The patient is alert to self, in no acute distress. HET: Head is normocephalic and atraumatic. Pupils are equal and reactive. Oropharynx is clear without lesions. Neck: Supple without lymphadenopathy. Trachea midline. Heart: S1 S2. Regular rate and rhythm. Lungs: No crackles or wheezes are heard. Abdomen: Soft, midepigastric tenderness, nondistended with bowel sounds. No peritoneal signs. No palpable organomegaly or masses. Extremities: Normal skin color and turgor. No cyanosis, rash, ulceration, clubbing, or edema. Radial and pedal pulses are 2/4 bilaterally. Neurological: No focal deficits. Strength and sensation are grossly intact. - Labs CBC & Chem 7: 01/30/18 09:20 01/30/18 09:20 Labs: Abnormal Lab Results - Last 24 Hours (Table) 01/30/18 01/30/18 01/30/18 Range/Units 05:30 09:20 09:20 WBC 39.8 H* (3.8-10.6) k/uL Neutrophils # 37.8 H (1.3-7.7) k/uL Lymphocytes # 0.4 L (1.0-4.8) k/uL Monocytes # 1.3 H (0-1.0) k/uL D-Dimer (<0.60) mg/L FEU ABG pO2 (83-108) mmHg ABG Total CO2 (19-24) mmol/L BUN 22 H (9-20) mg/dL Calcium 7.2 L (8.4-10.2) mg/dL Delta Bilirubin 0.3 H (0.0-0.2) mg/dL Total Protein 4.8 L (6.3-8.2) g/dL Albumin 2.5 L (3.5-5.0) g/dL HDL Cholesterol 32 L (40-60) mg/dL Amylase 312 H* (30-110) U/L Lipase 1639 H (23-300) U/L Urine Protein 2+ H (Negative) Urine Ketones 1+ H (Negative) Urine Blood Small H (Negative) Urine RBC 6 H (0-5) /hpf Amorphous Sediment Rare H (None) /hpf Urine Mucus Rare H (None) /hpf 01/30/18 01/30/18 Range/Units 23:40 23:54 WBC (3.8-10.6) k/uL Neutrophils # (1.3-7.7) k/uL Lymphocytes # (1.0-4.8) k/uL Monocytes # (0-1.0) k/uL D-Dimer 13.73 H (<0.60) mg/L FEU ABG pO2 67 L (83-108) mmHg ABG Total CO2 26 H (19-24) mmol/L BUN (9-20) mg/dL Calcium (8.4-10.2) mg/dL Delta Bilirubin (0.0-0.2) mg/dL Total Protein (6.3-8.2) g/dL Albumin (3.5-5.0) g/dL HDL Cholesterol (40-60) mg/dL Amylase (30-110) U/L Lipase (23-300) U/L Urine Protein (Negative) Urine Ketones (Negative) Urine Blood (Negative) Urine RBC (0-5) /hpf Amorphous Sediment (None) /hpf Urine Mucus (None) /hpf Microbiology - Last 24 Hours (Table) 01/30/18 00:02 Blood Culture - Preliminary Blood No Growth after 24 hours 01/30/18 00:02 Blood Culture - Preliminary Blood No Growth after 24 hours 01/30/18 05:30 Urine Culture - Preliminary Urine,Voided Assessment and Plan (1) Acute pancreatitis Narrative/Plan: Severe sepsis with confusion Current Visit: Yes Status: Acute Code(s): K85.90 - ACUTE PANCREATITIS WITHOUT NECROSIS OR INFECTION, [facility] SNOMED Code(s): 630414053 (2) Confusion Current Visit: Yes Status: Acute Code(s): R41.0 - DISORIENTATION, UNSPECIFIED SNOMED Code(s): 604704841 Plan: 1. IV fluids have been decreased to 125 mL an hour. Continue IV antibiotics. Daily CBC pancreatic enzymes. 2. Nothing by mouth except medications ice chips. Protonix 40 mg IV daily. Consideration for inpatient EGD prior to discharge rule out peptic ulcer disease etiology. We'll follow closely with you. Assessment and plan a care discussed with Dr. Westbrook
[2018-01-31 09:25] LABS: Calcium 7.6 mg/dL (8.4-10.2); Potassium 3.9 mmol/L (3.5-5.1)
[2018-01-31 09:54] LABS: Basophils % (A) 0 %; Eosinophils % (A) 0 %; HCT 41.2 % (39.0-53.0); HGB 13.5 gm/dL (13.0-17.5); Lymphocytes # (A) 0.5 k/uL (1.0-4.8); Lymphocytes % (A) 1 %; MCH 30.6 pg (25.0-35.0); MCHC 32.7 g/dL (31.0-37.0); MCV 93.5 fL (80.0-100.0); Mean Platelet Volume 8.1; Monocytes # (A) 1.3 k/uL (0-1.0); Monocytes % (A) 4 %; Neutrophils # (A) 30.8 k/uL (1.3-7.7); Neutrophils % (A) 94 %; Platelet Count 236 k/uL (150-450); RDW 13.9 % (11.5-15.5)
[2018-01-31 10:03] LABS: WBC 32.7 k/uL (3.8-10.6)
--- NOTE | 2018-01-31 10:50 | P.CNPUL ---
<Irasema Estrella - Last Filed: 01/31/18 10:24> History of Present Illness Consult date: 01/31/18 Requesting physician: Nedra Tineo Reason for consult: hypoxemia Chief complaint: Abdominal and back pain History of present illness: This is a very pleasant 72-year-old gentleman who follows at the [facility] for his primary care needs. He has a history of hyperlipidemia, osteoarthritis , previous pneumonias, previous history of MRSA infections. He has a remote history of smoking for approximately 25 years at 1 pack per day but take quit 40 years ago. On no home oxygen or inhalers. No history of asthma or emphysema. Patient presented to the emergency room on 01/28/2018 with severe abdominal pain, nausea vomiting diarrhea. He was found to have acute pancreatitis. He denies any significant alcohol intake. Stating only occasional use. White count was 18.9, amylase 3077 and a lipase greater than 20 ,000. Ultrasound of the abdomen revealed hepatic cyst but no evidence of gallstone. Computed tomography scan of the abdomen revealed extensive. Pancreatic inflammatory changes and a small amount of fluid. There is also noted inflammatory changes involving the duodenum which also Peptic ulcer disease within the differential diagnosis. He is being followed by GI services and they may be planning a EGD tomorrow. We are consulted today for some increased confusion, elevated d-dimer and hypoxemia that developed last night. They state his saturations were in the 80s on room air. CT angiogram ruled out pulmonary embolism. There is noted bilateral pleural effusions and a small pericardial effusion. There is basilar infiltrate/atelectasis. Arterial blood gases revealed a pO2 of 67, pCO2 40, pH 7.40. His white count is 32.7. Hemoglobin 13.5. Lipase improved to 470. The patient is seen today on the regular medical floor. He is currently resting fairly comfortably in bed. He still has ongoing abdominal and back pain. He denies any worsening shortness of breath. He has no cough currently. He is currently afebrile. Slightly tachycardic. Maintain O2 saturations in the low 90s on 4 L/m per nasal cannula. He is currently on Zosyn and metronidazole. Review of Systems Constitutional: Reports fever, Reports poor appetite, Reports weakness Eyes: denies blurred vision, denies decreased vision Ears: deny: decreased hearing Ears, nose, mouth and throat: Denies headache, Denies sore throat Cardiovascular: Denies chest pain, Denies shortness of breath Respiratory: Reports pain Gastrointestinal: Reports abdominal pain, Reports indigestion, Reports nausea Genitourinary: Reports as per HPI Musculoskeletal: Reports low back pain Integumentary: Denies pruritus, Denies rash Neurological: Reports change in mentation, Reports memory loss, Reports weakness Psychiatric: Reports anxiety Endocrine: Denies fatigue, Denies weight change Hematologic/Lymphatic: Reports as per HPI Allergic/Immunologic: Reports as per HPI Past Medical History Past Medical History: Hyperlipidemia, Osteoarthritis (OA), Pneumonia History of Any Multi-Drug Resistant Organisms: MRSA Date of last positivie culture/infection: 2011 MDRO Source:: hand right Past Surgical History: Hernia Repair Past Psychological History: No Psychological Hx Reported Smoking Status: Former smoker Past Alcohol Use History: Rare Past Drug Use History: None Reported - Past Family History Father Additional Family Medical History / Comment(s): dementia, at age 83 Mother Family Medical History: Hyperlipidemia Additional Family Medical History / Comment(s): heart valve proble per patient, at age 96 Medications and Allergies Home Medications Medication Instructions Recorded Confirmed Type Atorvastatin [Lipitor] 10 mg PO HS 01/28/18 01/28/18 History RX: Gabapentin [Neurontin] 300 mg PO HS 01/28/18 01/28/18 History Allergies Allergy/AdvReac Type Severity Reaction Status Date / Time Penicillins Allergy Rash/Hives Verified 01/28/18 13:17 Physical Exam Vitals: Vital Signs Temp Pulse Resp BP Pulse Ox 01/31/18 08:20 145/88 01/31/18 06:36 97.2 F L 111 H 18 161/88 93 L 01/30/18 23:54 20 01/30/18 23:00 99.2 F 118 H 20 154/81 92 L 01/30/18 15:06 99.1 F 94 20 138/79 91 L Intake and Output 01/30/18 01/31/18 01/31/18 22:59 06:59 14:59 Intake Total 5 Balance 5 Intake: Oral 5 Other: Voiding Method Urinal # Voids 1 2 # Bowel Movements 1 Weight 83.915 kg - Constitutional General appearance: average body habitus, cooperative, mild distress - EENT Eyes: EOMI ENT: hearing grossly normal Ears: bilateral: normal - Neck Neck: normal ROM Carotids: bilateral: upstroke normal Thyroid: bilateral: normal size - Respiratory Respiratory: bilateral: rales - Cardiovascular Rhythm: regular Heart sounds: normal: S1, S2 - Gastrointestinal General gastrointestinal: normal bowel sounds, tenderness Localized gastrointestinal: tender: RUQ - Integumentary Integumentary: normal turgor - Neurologic Neurologic: CNII-XII intact - Musculoskeletal Musculoskeletal: generalized weakness - Psychiatric Psychiatric: A&O x's 3, intact judgment & insight Results - Laboratory Findings CBC and BMP: 01/31/18 08:26 01/31/18 08:26 ABG ABG pH 7.40 (7.35-7.45) 01/30/18 23:54 ABG pCO2 40 mmHg (35-45) 01/30/18 23:54 ABG pO2 67 mmHg (83-108) L 01/30/18 23:54 ABG O2 Saturation 94.8 % (94-97) 01/30/18 23:54 PT/INR, D-dimer PT 10.9 sec (9.0-12.0) 01/28/18 09:18 INR 1.1 (<1.2) 01/28/18 09:18 D-Dimer 13.73 mg/L FEU (<0.60) H 01/30/18 23:40 Abnormal lab findings: Abnormal Labs 01/28/18 01/28/18 01/28/18 09:18 09:18 09:18 WBC 18.9 H Neutrophils # 15.8 H Neutrophils # (Manual) Lymphocytes # Lymphocytes # (Manual) Monocytes # Monocytes # (Manual) APTT 21.9 L D-Dimer ABG pO2 ABG Total CO2 BUN Glucose 182 H Calcium Delta Bilirubin Total Protein Albumin HDL Cholesterol Amylase 3077 H* Lipase >34499 H Urine Protein Urine Glucose (UA) Urine Ketones Urine Blood Urine RBC Amorphous Sediment Urine Mucus 01/28/18 01/29/18 01/29/18 11:15 07:50 07:50 WBC 43.1 H* Neutrophils # Neutrophils # (Manual) 41.30 H Lymphocytes # Lymphocytes # (Manual) 0.43 L Monocytes # Monocytes # (Manual) 1.29 H APTT D-Dimer ABG pO2 ABG Total CO2 BUN Glucose Calcium 7.9 L Delta Bilirubin Total Protein 5.9 L Albumin 3.3 L HDL Cholesterol Amylase Lipase 5810 H Urine Protein Urine Glucose (UA) Trace H Urine Ketones Urine Blood Urine RBC Amorphous Sediment Urine Mucus 01/30/18 01/30/18 01/30/18 05:30 09:20 09:20 WBC 39.8 H* Neutrophils # 37.8 H Neutrophils # (Manual) Lymphocytes # 0.4 L Lymphocytes # (Manual) Monocytes # 1.3 H Monocytes # (Manual) APTT D-Dimer ABG pO2 ABG Total CO2 BUN 22 H Glucose Calcium 7.2 L Delta Bilirubin 0.3 H Total Protein 4.8 L Albumin 2.5 L HDL Cholesterol 32 L Amylase 312 H* Lipase 1639 H Urine Protein 2+ H Urine Glucose (UA) Urine Ketones 1+ H Urine Blood Small H Urine RBC 6 H Amorphous Sediment Rare H Urine Mucus Rare H 01/30/18 01/30/18 01/31/18 23:40 23:54 08:26 WBC 32.7 H* Neutrophils # 30.8 H Neutrophils # (Manual) Lymphocytes # 0.5 L Lymphocytes # (Manual) Monocytes # 1.3 H Monocytes # (Manual) APTT D-Dimer 13.73 H ABG pO2 67 L ABG Total CO2 26 H BUN Glucose Calcium Delta Bilirubin Total Protein Albumin HDL Cholesterol Amylase Lipase Urine Protein Urine Glucose (UA) Urine Ketones Urine Blood Urine RBC Amorphous Sediment Urine Mucus 01/31/18 08:26 WBC Neutrophils # Neutrophils # (Manual) Lymphocytes # Lymphocytes # (Manual) Monocytes # Monocytes # (Manual) APTT D-Dimer ABG pO2 ABG Total CO2 BUN Glucose Calcium 7.6 L Delta Bilirubin Total Protein Albumin HDL Cholesterol 31 L Amylase Lipase 470 H Urine Protein Urine Glucose (UA) Urine Ketones Urine Blood Urine RBC Amorphous Sediment Urine Mucus - Diagnostic Findings CT scan - chest: image reviewed Assessment and Plan Assessment: Impression: #1 Acute hypoxic respiratory failure secondary to bilateral pleural effusions, bilateral atelectasis/infiltrate. Pulmonary embolism ruled out. #2 Acute pancreatitis with possible acute peptic ulcer disease. #3 Leukocytosis secondary to above. #4 Acute sepsis secondary to above. #5 Remote history of 25 year pack per day smoking however quit approximate 40 years ago. #6 Hyperlipidemia. #7 Osteoarthritis. #8 History of previous MRSA infection. Plan: The patient was seen and evaluated by Dr. Ott. Computed tomography scan, labs reviewed. No significant effusions for thoracentesis. We will add bronchodilators, add incentive spirometer and encourage cough and deep breathing exercises. Continue with Zosyn and Flagyl per ID. Increase his activity as tolerated. Titrate down the FiO2 L maintain O2 saturations greater than 92%. Heparin for DVT prophylaxis. Protonix for GI prophylaxis. GI services on the case and planning possible EGD in the a.m. We will continue to follow make further recommendations based on his clinical status. I, the cosigning physician, performed a history & physical examination of the patient. Lungs sounds have crackles in the bilateral posterior bases. Maintaining good O2 saturations in the 90s on 4 L/m per nasal cannula. I discussed the assessment and plan of care with my nurse practitioner, Irasema Estrella. I attest to the above note as dictated by her. Time with Patient: Greater than 30 <Dorcas Ott - Last Filed: 01/31/18 17:13> Physical Exam Vitals: Vital Signs Temp Pulse Resp BP Pulse Ox 01/31/18 15:01 98.4 F 115 H 18 160/89 93 L 01/31/18 13:20 16 92 L 01/31/18 08:20 145/88 01/31/18 06:36 97.2 F L 111 H 18 161/88 93 L 01/30/18 23:54 20 01/30/18 23:00 99.2 F 118 H 20 154/81 92 L Intake and Output 01/31/18 01/31/18 01/31/18 06:59 14:59 22:59 Intake Total 5 Output Total 850 Balance -845 Intake: Oral 5 Output: Urine 850 Other: Voiding Method Urinal Urinal # Voids 2 1 # Bowel Movements 1 Weight 83.915 kg 83.915 kg Results - Laboratory Findings CBC and BMP: 01/31/18 08:26 01/31/18 08:26 ABG ABG pH 7.40 (7.35-7.45) 01/30/18 23:54 ABG pCO2 40 mmHg (35-45) 01/30/18 23:54 ABG pO2 67 mmHg (83-108) L 01/30/18 23:54 ABG O2 Saturation 94.8 % (94-97) 01/30/18 23:54 PT/INR, D-dimer PT 10.9 sec (9.0-12.0) 01/28/18 09:18 INR 1.1 (<1.2) 01/28/18 09:18 D-Dimer 13.73 mg/L FEU (<0.60) H 01/30/18 23:40 Abnormal lab findings: Abnormal Labs 01/28/18 01/28/18 01/28/18 09:18 09:18 09:18 WBC 18.9 H Neutrophils # 15.8 H Neutrophils # (Manual) Lymphocytes # Lymphocytes # (Manual) Monocytes # Monocytes # (Manual) APTT 21.9 L D-Dimer ABG pO2 ABG Total CO2 BUN Glucose 182 H Calcium Delta Bilirubin Total Protein Albumin HDL Cholesterol Amylase 3077 H* Lipase >00147 H Urine Protein Urine Glucose (UA) Urine Ketones Urine Blood Urine RBC Amorphous Sediment Urine Mucus Urine Opiates Screen U Benzodiazepines Scrn 01/28/18 01/29/18 01/29/18 11:15 07:50 07:50 WBC 43.1 H* Neutrophils # Neutrophils # (Manual) 41.30 H Lymphocytes # Lymphocytes # (Manual) 0.43 L Monocytes # Monocytes # (Manual) 1.29 H APTT D-Dimer ABG pO2 ABG Total CO2 BUN Glucose Calcium 7.9 L Delta Bilirubin Total Protein 5.9 L Albumin 3.3 L HDL Cholesterol Amylase Lipase 5810 H Urine Protein Urine Glucose (UA) Trace H Urine Ketones Urine Blood Urine RBC Amorphous Sediment Urine Mucus Urine Opiates Screen U Benzodiazepines Scrn 01/30/18 01/30/18 01/30/18 05:30 05:30 09:20 WBC 39.8 H* Neutrophils # 37.8 H Neutrophils # (Manual) Lymphocytes # 0.4 L Lymphocytes # (Manual) Monocytes # 1.3 H Monocytes # (Manual) APTT D-Dimer ABG pO2 ABG Total CO2 BUN Glucose Calcium Delta Bilirubin Total Protein Albumin HDL Cholesterol Amylase Lipase Urine Protein 2+ H Urine Glucose (UA) Urine Ketones 1+ H Urine Blood Small H Urine RBC 6 H Amorphous Sediment Rare H Urine Mucus Rare H Urine Opiates Screen Detected H U Benzodiazepines Scrn Detected H 01/30/18 01/30/18 01/30/18 09:20 23:40 23:54 WBC Neutrophils # Neutrophils # (Manual) Lymphocytes # Lymphocytes # (Manual) Monocytes # Monocytes # (Manual) APTT D-Dimer 13.73 H ABG pO2 67 L ABG Total CO2 26 H BUN 22 H Glucose Calcium 7.2 L Delta Bilirubin 0.3 H Total Protein 4.8 L Albumin 2.5 L HDL Cholesterol 32 L Amylase 312 H* Lipase 1639 H Urine Protein Urine Glucose (UA) Urine Ketones Urine Blood Urine RBC Amorphous Sediment Urine Mucus Urine Opiates Screen U Benzodiazepines Scrn 01/31/18 01/31/18 08:26 08:26 WBC 32.7 H* Neutrophils # 30.8 H Neutrophils # (Manual) Lymphocytes # 0.5 L Lymphocytes # (Manual) Monocytes # 1.3 H Monocytes # (Manual) APTT D-Dimer ABG pO2 ABG Total CO2 BUN Glucose Calcium 7.6 L Delta Bilirubin Total Protein Albumin HDL Cholesterol 31 L Amylase Lipase 470 H Urine Protein Urine Glucose (UA) Urine Ketones Urine Blood Urine RBC Amorphous Sediment Urine Mucus Urine Opiates Screen U Benzodiazepines Scrn Assessment and Plan Assessment: CT angios the chest was reviewed. There is atelectatic changes and effusion lung bases. No evidence of nipple embolism. Pneumonia is doubtful. Patient is having some delirium related to his acute pancreatitis. Haldol will be utilized as needed. We have a 24 hour sitter at the bedside. EGDs to follow. We'll continue to follow. Continue current antibiotic coverage.
[2018-01-31] MEDS ORDERED: HALOPERIDOL LACTATE 5 MG/ML 1 ML VIAL IM ONE (11:17)
[2018-01-31] MEDS ORDERED: LORazepam 2 MG/ML INJ IV PRN (12:50)
[2018-01-31] MEDS ORDERED: HALOPERIDOL LACTATE 5 MG/ML 1 ML VIAL IM PRN ×2 (13:25→14:36)
[2018-01-31 14:13] LABS: Amphetamine Screen,Urine Not Detected (NotDetected); Barbiturate Screen,Urine Not Detected (NotDetected); Benzodiazepines Screen,Urine Detected (NotDetected); Cocaine Screen,Urine Not Detected (NotDetected); Methadone Screen, Urine Not Detected (NotDetected); Opiate Screen,Urine Detected (NotDetected); Oxycodone Screen, Urine Not Detected (NotDetected); Phencyclidine Screen,Urine Not Detected (NotDetected); Tricyclic Antidepressant,Urine Not Detected (NotDetected); Urn Cannabinoid Scrn Not Detected (NotDetected)
--- NOTE | 2018-01-31 14:30 | PN ---
PROGRESS NOTE DATE OF SERVICE: 01/31/2018. REASON FOR FOLLOWUP: Acute pancreatitis with sepsis. INTERVAL HISTORY: The patient fever pattern has improved. No fever recorded last 24 hours. The patient seemed to be getting more agitated and has been fighting the nursing staff. No nausea or vomiting has been reported or any diarrhea. EXAMINATION: Blood pressure 154/81, pulse of 118, temperature 99.2. He is 92% on 3 L nasal cannula. General description is an elderly male lying in bed in no distress. RESPIRATORY SYSTEM: Unlabored breathing. Clear to auscultation anteriorly. HEART: S1, S2. Regular rate and rhythm. ABDOMEN: Soft, mild tenderness to the epigastric area. No guarding or rigidity. LABS: Hemoglobin 13.5, white count 32.7, BUN of 18, creatinine 1.0. . Blood culture has been negative. DIAGNOSTIC IMPRESSION AND PLAN: Patient with acute pancreatitis, questionable alcohol induced and culture was negative. The patient is getting more agitated now with a question of possible going through DTs. This was discussed with the medical team. We did try to obtain the alcohol on the blood draw from admission, however, this could not be completed. Urine drug screen has been ordered. Continue the Zosyn at this point. Continue supportive care. MMODL / IJN: [id number] / MTDD
--- NOTE | 2018-01-31 16:39 | P.PN ---
Subjective Progress Note Date: 01/30/18 Principal diagnosis: Acute Pancreatitis Patient 72-year-old male presenting to the emergency room today by EMS, with chief complaint of symptoms of nausea vomiting started approximately midnight. Does admit to eating out last night. States woke up approximately midnight with feeling nauseous. States had approximately 3 or 4 episodes of vomiting. States he had a small amount of diarrhea. Patient does admit to cramping throughout the abdomen. Patient denies any other complaints at this time. Patient denies any recent fever, chills, shortness of breath, chest pain, back pain, numbness or tingling, dysuria or hematuria, constipation, headaches or visual changes, or any other complaints. 01/30/2018 Patient is still having epigastric abdominal pain. Improved compared to yesterday. Lipase level is trending down as well. Otherwise patient was found have significant leukocytosis at 43.1 which is trending down to 39.8 today. He was started on Zosyn empirically. T-max today's 101.4 CT abdomen showed extensive PD pancreatic inflammatory changes and small amount of fluid. Intermittently change also involves the duodenum therefore peptic ulcer disease would also be in differential diagnosis. Patient is being followed by GI and ID at this time. Patient is nothing by mouth. Continued on IV fluids and pain medications. Of chest pain or shortness of breath. All other review of systems negative except the above Current medications reviewed. Objective - Vital Signs Vital signs: Vital Signs Temp 99.2 F 01/30/18 06:17 Pulse 106 H 01/30/18 06:17 Resp 16 01/30/18 06:17 BP 138/74 01/30/18 06:17 Pulse Ox 92 L 01/30/18 06:17 Intake & Output 01/29/18 01/30/18 01/30/18 18:59 06:59 18:59 Output Total 200 175 Balance -200 -175 Output: Urine 200 175 Other: # Voids 1 0 # Bowel Movements 1 - Exam PHYSICAL EXAMINATION: Patient is lying in the bed comfortably, no acute distress, awake alert and oriented.. HEENT: Normocephalic. Neck is supple. Pupils reactive. Nostrils clear. Oral cavity is moist. Ears reveal no drainage. Neck reveals no JVD, carotid bruits, or thyromegaly. CHEST EXAMINATION: Trachea is central. Symmetrical expansion. Diminished bibasilar air entry. Lung blakely clear to auscultation and percussion. CARDIAC: Normal S1, S2 with no gallops. No murmurs ABDOMEN: Soft. Epigastric mild tenderness. No guarding no rigidity. Bowel sounds normal. No organomegaly. No abdominal bruits. Extremities: reveal no edema. No clubbing or cyanosis Neurologically awake, alert, oriented x3 with well-coordinated movements. No focal deficits noted Skin: No rash or skin lesions. Psychiatric: Cooperative. Nonsuicidal Musculoskeletal: No joint swelling or deformity. Normal range of motion. - Labs CBC & Chem 7: 01/31/18 08:26 01/31/18 08:26 Labs: Abnormal Lab Results - Last 24 Hours (Table) 01/30/18 01/30/18 01/30/18 Range/Units 05:30 09:20 09:20 WBC 39.8 H* (3.8-10.6) k/uL Neutrophils # 37.8 H (1.3-7.7) k/uL Lymphocytes # 0.4 L (1.0-4.8) k/uL Monocytes # 1.3 H (0-1.0) k/uL BUN 22 H (9-20) mg/dL Calcium 7.2 L (8.4-10.2) mg/dL Delta Bilirubin 0.3 H (0.0-0.2) mg/dL Total Protein 4.8 L (6.3-8.2) g/dL Albumin 2.5 L (3.5-5.0) g/dL HDL Cholesterol 32 L (40-60) mg/dL Amylase 312 H* (30-110) U/L Lipase 1639 H (23-300) U/L Urine Protein 2+ H (Negative) Urine Ketones 1+ H (Negative) Urine Blood Small H (Negative) Urine RBC 6 H (0-5) /hpf Amorphous Sediment Rare H (None) /hpf Urine Mucus Rare H (None) /hpf Assessment and Plan Assessment: Acute pancreatitis with significant elevated lipase level Suspected peptic ulcer disease as per CT abdomen Sepsis with Leukocytosis 43.1-->39-8 and fever. Likely due to #1. On empiric antibiotics with Zosyn Hyperglycemia Hyperlipidemia DVT prophylaxis Plan: Patient will be continued on IV fluids and pain medications. Continue with the Protonix IV. Monitor CBC and BMP tomorrow. Continue with antibiotics and further recommendations based on the clinical course. GI is following. Time with Patient: Greater than 30
--- NOTE | 2018-01-31 16:51 | P.PN ---
Subjective Progress Note Date: 01/31/18 Principal diagnosis: Acute Pancreatitis Patient 72-year-old male presenting to the emergency room today by EMS, with chief complaint of symptoms of nausea vomiting started approximately midnight. Does admit to eating out last night. States woke up approximately midnight with feeling nauseous. States had approximately 3 or 4 episodes of vomiting. States he had a small amount of diarrhea. Patient does admit to cramping throughout the abdomen. Patient denies any other complaints at this time. Patient denies any recent fever, chills, shortness of breath, chest pain, back pain, numbness or tingling, dysuria or hematuria, constipation, headaches or visual changes, or any other complaints. ABDOMEN ULTRASOUND DEMONSTRATES A HEPATIC CYST WITH NO DEFINITIVE EVIDENCE OF GALLSTONE. 01/30/2018 Patient is still having epigastric abdominal pain. Improved compared to yesterday. Lipase level is trending down as well. Otherwise patient was found have significant leukocytosis at 43.1 which is trending down to 39.8 today. He was started on Zosyn empirically. T-max today's 101.4 CT abdomen showed extensive PD pancreatic inflammatory changes and small amount of fluid. Intermittently change also involves the duodenum therefore peptic ulcer disease would also be in differential diagnosis. Patient is being followed by GI and ID at this time. Patient is nothing by mouth. Continued on IV fluids and pain medications. Of chest pain or shortness of breath. 01/31/2018 Patient was confused last night and was hypoxic. D-dimer was elevated and CTA chest was done showed no evidence of pulmonary embolism. Pleural effusions and small pericardial effusion and mild basilar pulmonary infiltrates and atelectasis was noted. CT head showed no acute intracranial process. WBC count is trending down to 32.7 today. lipase level is trending down as well. Abdominal pain otherwise improved. Patient will be started on clear liquids. GI is planning for EGD likely tomorrow to evaluate for peptic ulcer disease. Patient is afebrile today otherwise Currently on antibiotics in the form of Zosyn and metronidazole. Patient is confused at times. Denied any chest pain. No nausea vomiting. No diarrhea. All other review of systems negative except the above Active Medications Acetaminophen (Tylenol Tab) 650 mg PO Q6HR PRN PRN Reason: Mild Pain or Fever > 100.5 Last Admin: 01/29/18 23:20 Dose: 650 mg Hydrocodone Bitart/Acetaminophen (Malin 5-325) 1 each PO Q4HR PRN PRN Reason: Moderate Pain Last Admin: 01/31/18 09:42 Dose: 1 each Gabapentin (Neurontin) 300 mg PO HS [facility] Last Admin: 01/30/18 20:48 Dose: 300 mg Haloperidol Lactate (Haldol) 5 mg IM Q6HR PRN PRN Reason: Delirium Heparin Sodium (Porcine) (Heparin) 5,000 unit SQ Q12HR [facility] Last Admin: 01/31/18 07:10 Dose: 5,000 unit Metronidazole 500 mg/ IV (Solution) 100 mls @ 100 mls/hr IVPB Q6HR [facility] Last Admin: 01/31/18 11:12 Dose: 100 mls/hr Piperacillin/Tazobactam/ (Dextrose 3.375 gm/ IV Solution) 50 mls @ 12.5 mls/hr IVPB Q8H [facility] Last Admin: 01/31/18 09:41 Dose: 12.5 mls/hr Sodium Chloride (Saline 0.9%) 1,000 mls @ 125 mls/hr IV .Q8H [facility] Last Admin: 01/31/18 14:49 Dose: 125 mls/hr Lorazepam (Ativan) 1 mg IV Q6HR PRN PRN Reason: Anxiety Morphine Sulfate (Morphine Sulfate (Inj)) 4 mg IV Q4HR PRN PRN Reason: Severe Pain Last Admin: 01/30/18 20:48 Dose: 4 mg Naloxone HCl (Narcan) 0.2 mg IV Q2M PRN PRN Reason: Opioid Reversal Ondansetron HCl (Zofran) 4 mg IVP Q8HR PRN PRN Reason: Nausea And Vomiting Last Admin: 01/29/18 00:14 Dose: 4 mg Pantoprazole Sodium (Protonix) 40 mg IVP DAILY [facility] Last Admin: 01/31/18 07:11 Dose: 40 mg Objective - Vital Signs Vital signs: Vital Signs Temp 98.4 F 01/31/18 15:01 Pulse 115 H 01/31/18 15:01 Resp 18 01/31/18 15:01 BP 160/89 01/31/18 15:01 Pulse Ox 93 L 01/31/18 15:01 Intake & Output 01/30/18 01/31/18 01/31/18 18:59 06:59 18:59 Intake Total 5 Output Total 850 Balance -845 Weight 83.915 kg 83.915 kg Intake: Oral 5 Output: Urine 850 Other: Voiding Method Urinal # Voids 1 2 1 # Bowel Movements 1 - Exam PHYSICAL EXAMINATION: Patient is lying in the bed comfortably, no acute distress, awake alert and oriented. Slightly confused.. HEENT: Normocephalic. Neck is supple. Pupils reactive. Nostrils clear. Oral cavity is moist. Ears reveal no drainage. Neck reveals no JVD, carotid bruits, or thyromegaly. CHEST EXAMINATION: Trachea is central. Symmetrical expansion. Diminished bibasilar air entry. Lung blakely clear to auscultation and percussion. CARDIAC: Normal S1, S2 with no gallops. No murmurs ABDOMEN: Soft. Epigastric mild tenderness. No guarding no rigidity. Bowel sounds normal. No organomegaly. No abdominal bruits. Extremities: reveal no edema. No clubbing or cyanosis Neurologically awake, alert, oriented x2-3 with well-coordinated movements. No focal deficits noted Skin: No rash or skin lesions. Psychiatric: Cooperative. Nonsuicidal Musculoskeletal: No joint swelling or deformity. Normal range of motion. - Labs CBC & Chem 7: 01/31/18 08:26 01/31/18 08:26 Labs: Abnormal Lab Results - Last 24 Hours (Table) 01/30/18 01/30/18 01/30/18 Range/Units 05:30 23:40 23:54 WBC (3.8-10.6) k/uL Neutrophils # (1.3-7.7) k/uL Lymphocytes # (1.0-4.8) k/uL Monocytes # (0-1.0) k/uL D-Dimer 13.73 H (<0.60) mg/L FEU ABG pO2 67 L (83-108) mmHg ABG Total CO2 26 H (19-24) mmol/L Calcium (8.4-10.2) mg/dL HDL Cholesterol (40-60) mg/dL Lipase (23-300) U/L Urine Opiates Screen Detected H (NotDetected) U Benzodiazepines Scrn Detected H (NotDetected) 01/31/18 01/31/18 Range/Units 08:26 08:26 WBC 32.7 H* (3.8-10.6) k/uL Neutrophils # 30.8 H (1.3-7.7) k/uL Lymphocytes # 0.5 L (1.0-4.8) k/uL Monocytes # 1.3 H (0-1.0) k/uL D-Dimer (<0.60) mg/L FEU ABG pO2 (83-108) mmHg ABG Total CO2 (19-24) mmol/L Calcium 7.6 L (8.4-10.2) mg/dL HDL Cholesterol 31 L (40-60) mg/dL Lipase 470 H (23-300) U/L Urine Opiates Screen (NotDetected) U Benzodiazepines Scrn (NotDetected) Microbiology - Last 24 Hours (Table) 01/30/18 05:30 Urine Culture - Final Urine,Voided 01/30/18 00:02 Blood Culture - Preliminary Blood No Growth after 24 hours 01/30/18 00:02 Blood Culture - Preliminary Blood No Growth after 24 hours Assessment and Plan Assessment: Acute hypoxic respiratory failure likely due to pleural effusion and mild basilar pulmonary infiltrate and atelectasis. Currently on nasal cannula oxygen. Acute delirium. Unlikely encephalopathy. Acute pancreatitis with significantly elevated lipase level. Etiology unknown. Patient does not have a history of alcohol abuse. Suspected peptic ulcer disease as per CT abdomen Sepsis with Leukocytosis 43.1-->39-8--32.7 and fever. Likely due to #1. Afebrile now. On empiric antibiotics with Zosyn and Flagyl Hyperglycemia LDL 22 and triglyceride level 45 Remote history of smoking DVT prophylaxis Plan: Patient will be continued on IV fluids and pain medications. Continue with the Protonix IV. GI is planning for EGD tomorrow .Monitor CBC and BMP tomorrow. Incentive spirometry. Continue with antibiotics and further recommendations based on the clinical course. GI and pulmonary is following. Time with Patient: Greater than 30
--- NOTE | 2018-01-31 19:45 | P.CNNES ---
History of Present Illness Consult date: 01/31/18 History of Present Illness: The patient is a 72-year-old man who states he had developed sudden onset upper abdominal pain. This was not positional. It was associated with nausea and vomiting. He was admitted on January 28 with acute pancreatitis. EtOH level was not drawn. He had an elevated white cell count of 18.9 sound of the abdomen revealed a hepatic cyst. Neurology was requested to see the patient today regarding altered mental status since yesterday. Patient is confused and he denies any pain currently. He is what he is oriented 2 apparently there is no previous history of EtOH abuse. He was admitted with acute hypoxic respiratory failure secondary to bilateral pleural effusions as well as acute pancreatitis and possible peptic ulcer. Review of Systems ROS unobtainable: due to mental status Past Medical History Past Medical History: Hyperlipidemia, Osteoarthritis (OA), Pneumonia History of Any Multi-Drug Resistant Organisms: MRSA Date of last positivie culture/infection: 2011 MDRO Source:: hand right Past Surgical History: Hernia Repair Past Psychological History: No Psychological Hx Reported Smoking Status: Former smoker Past Alcohol Use History: Rare Past Drug Use History: None Reported - Past Family History Father Additional Family Medical History / Comment(s): dementia, at age 83 Mother Family Medical History: Hyperlipidemia Additional Family Medical History / Comment(s): heart valve proble per patient, at age 96 Medications and Allergies Home Medications Medication Instructions Recorded Confirmed Type Atorvastatin [Lipitor] 10 mg PO HS 01/28/18 01/28/18 History Gabapentin [Neurontin] 300 mg PO HS 01/28/18 01/28/18 History Allergies Allergy/AdvReac Type Severity Reaction Status Date / Time Penicillins Allergy Rash/Hives Verified 01/28/18 13:17 Physical Examination - Vital Signs Vital Signs: Vital Signs Temp Pulse Resp BP Pulse Ox 01/31/18 15:01 98.4 F 115 H 18 160/89 93 L 01/31/18 13:20 16 92 L 01/31/18 08:20 145/88 01/31/18 06:36 97.2 F L 111 H 18 161/88 93 L 01/30/18 23:54 20 01/30/18 23:00 99.2 F 118 H 20 154/81 92 L Intake and Output 01/31/18 01/31/18 01/31/18 06:59 14:59 22:59 Intake Total 5 Output Total 850 500 Balance -845 -500 Intake: Oral 5 Output: Urine 850 250 Post Void Residual 250 Other: Voiding Method Urinal Urinal # Voids 2 1 1 # Bowel Movements 1 Weight 83.915 kg 83.915 kg - Constitutional General appearance: average body habitus - EENT EENT: PERRL, hearing intact, vision intact - Respiratory Respiratory: lungs clear - Cardiovascular Cardiovascular: regular rate - Neurologic Neurologic exam Mental status: He was awake he was alert he was oriented to person he knew his date he thought the month currently is May and the year 1917. He thought the city [place] and he was in [place]. He was able to do simple addition but had difficulty with subtraction. Is no a aphasia or dysarthria. Cranial most 2 through 12 are grossly intact X Motor examination revealed no focal weakness next Deep tendon reflexes were 2 and symmetric Results - Laboratory Findings CBC and BMP: 01/31/18 08:26 01/31/18 08:26 Abnormal Lab Findings: Abnormal Labs 01/28/18 01/28/18 01/28/18 09:18 09:18 09:18 WBC 18.9 H Neutrophils # 15.8 H Neutrophils # (Manual) Lymphocytes # Lymphocytes # (Manual) Monocytes # Monocytes # (Manual) APTT 21.9 L D-Dimer ABG pO2 ABG Total CO2 BUN Glucose 182 H Calcium Delta Bilirubin Total Protein Albumin HDL Cholesterol Amylase 3077 H* Lipase >34797 H Urine Protein Urine Glucose (UA) Urine Ketones Urine Blood Urine RBC Amorphous Sediment Urine Mucus Urine Opiates Screen U Benzodiazepines Scrn 01/28/18 01/29/18 01/29/18 11:15 07:50 07:50 WBC 43.1 H* Neutrophils # Neutrophils # (Manual) 41.30 H Lymphocytes # Lymphocytes # (Manual) 0.43 L Monocytes # Monocytes # (Manual) 1.29 H APTT D-Dimer ABG pO2 ABG Total CO2 BUN Glucose Calcium 7.9 L Delta Bilirubin Total Protein 5.9 L Albumin 3.3 L HDL Cholesterol Amylase Lipase 5810 H Urine Protein Urine Glucose (UA) Trace H Urine Ketones Urine Blood Urine RBC Amorphous Sediment Urine Mucus Urine Opiates Screen U Benzodiazepines Scrn 01/30/18 01/30/18 01/30/18 05:30 05:30 09:20 WBC 39.8 H* Neutrophils # 37.8 H Neutrophils # (Manual) Lymphocytes # 0.4 L Lymphocytes # (Manual) Monocytes # 1.3 H Monocytes # (Manual) APTT D-Dimer ABG pO2 ABG Total CO2 BUN Glucose Calcium Delta Bilirubin Total Protein Albumin HDL Cholesterol Amylase Lipase Urine Protein 2+ H Urine Glucose (UA) Urine Ketones 1+ H Urine Blood Small H Urine RBC 6 H Amorphous Sediment Rare H Urine Mucus Rare H Urine Opiates Screen Detected H U Benzodiazepines Scrn Detected H 01/30/18 01/30/18 01/30/18 09:20 23:40 23:54 WBC Neutrophils # Neutrophils # (Manual) Lymphocytes # Lymphocytes # (Manual) Monocytes # Monocytes # (Manual) APTT D-Dimer 13.73 H ABG pO2 67 L ABG Total CO2 26 H BUN 22 H Glucose Calcium 7.2 L Delta Bilirubin 0.3 H Total Protein 4.8 L Albumin 2.5 L HDL Cholesterol 32 L Amylase 312 H* Lipase 1639 H Urine Protein Urine Glucose (UA) Urine Ketones Urine Blood Urine RBC Amorphous Sediment Urine Mucus Urine Opiates Screen U Benzodiazepines Scrn 01/31/18 01/31/18 08:26 08:26 WBC 32.7 H* Neutrophils # 30.8 H Neutrophils # (Manual) Lymphocytes # 0.5 L Lymphocytes # (Manual) Monocytes # 1.3 H Monocytes # (Manual) APTT D-Dimer ABG pO2 ABG Total CO2 BUN Glucose Calcium 7.6 L Delta Bilirubin Total Protein Albumin HDL Cholesterol 31 L Amylase Lipase 470 H Urine Protein Urine Glucose (UA) Urine Ketones Urine Blood Urine RBC Amorphous Sediment Urine Mucus Urine Opiates Screen U Benzodiazepines Scrn Assessment and Plan (1) Acute confusion Current Visit: Yes Status: Acute SNOMED Code(s): 644076681 (2) Acute pancreatitis Current Visit: Yes Status: Acute SNOMED Code(s): 898892669 (3) Hypoxia Current Visit: Yes Status: Acute SNOMED Code(s): 084289214 (4) Sepsis Current Visit: Yes Status: Acute Code(s): A41.9 - SEPSIS, UNSPECIFIED ORGANISM SNOMED Code(s): 88259493 Plan: The patient is a 72-year-old man admitted to the hospital with sepsis, acute pancreatitis with recent abrupt confusion. MANISH level was not drawn on admission cannot rule out EtOH withdrawal has been agitated and confused since the past 24 hours. Also had episode of hypoxia and pulmonary embolus was ruled out. Confusion may be secondary to underlying sepsis and hypoxia. EEG. The patient had a CT of the brain which appeared unremarkable
[2018-01-31] MEDS: GABAPENTIN 300 MG CAP PO SCH (21:43)
[2018-02-01] MEDS: PIPERACILLIN-TAZOBACTAM 3.375 GM in DEXTROSE/WATER 1 50ML.BAG IVPB SCH ×3 (01:59→18:19)
[2018-02-01 06:03] LABS: Glucose,Whole Blood 73 mg/dL (75-99)
[2018-02-01] MEDS: SODIUM CHLORIDE 0.9% 1,000 ML IV SCH ×3 (06:36→22:28)
[2018-02-01] MEDS: metroNIDAZOLE-NS PMX 500 MG in SALINE 1 100ML.BAG IVPB SCH ×4 (06:36→23:23)
[2018-02-01] MEDS: HEPARIN SODIUM,PORCINE 5,000 UNIT/ML 1 ML VIAL SQ SCH ×2 (08:02→20:49)
[2018-02-01] MEDS: PANTOPRAZOLE 40 MG/10 ML VIAL IVP SCH (08:02)
[2018-02-01 08:04] LABS: Basophils % (A) 0 %; Eosinophils # (A) 0.1 k/uL (0-0.7); Eosinophils % (A) 0 %; HCT 37.7 % (39.0-53.0); HGB 12.9 gm/dL (13.0-17.5); Lymphocytes # (A) 0.5 k/uL (1.0-4.8); Lymphocytes % (A) 2 %; MCH 31.7 pg (25.0-35.0); MCHC 34.1 g/dL (31.0-37.0); MCV 92.8 fL (80.0-100.0); Mean Platelet Volume 7.8; Monocytes # (A) 1.1 k/uL (0-1.0); Monocytes % (A) 4 %; Neutrophils # (A) 24.2 k/uL (1.3-7.7); Neutrophils % (A) 93 %; Platelet Count 245 k/uL (150-450); RBC 4.06 m/uL (4.30-5.90); RDW 14.1 % (11.5-15.5)
[2018-02-01 08:07] LABS: WBC 26.1 k/uL (3.8-10.6)
[2018-02-01 08:39] LABS: ALT 36 U/L (21-72); AST 42 U/L (17-59); Albumin 2.5 g/dL (3.5-5.0); Alkaline Phosphatase 85 U/L (38-126); Anion Gap 9 mmol/L; Blood Urea Nitrogen 15 mg/dL (9-20); Calcium 7.4 mg/dL (8.4-10.2); Carbon Dioxide 28 mmol/L (22-30); Chloride 103 mmol/L (98-107); Glucose 97 mg/dL (74-99); Lipase 189 U/L (23-300); Magnesium 1.9 mg/dL (1.6-2.3); Potassium 3.7 mmol/L (3.5-5.1); Sodium 140 mmol/L (137-145); Total Bilirubin 0.9 mg/dL (0.2-1.3); Total Protein 4.7 g/dL (6.3-8.2)
[2018-02-01] MEDS ORDERED: FUROSEMIDE 10 MG/ML 2 ML VIAL IV ONE (10:30)
--- NOTE | 2018-02-01 10:47 | P.PN ---
Subjective Progress Note Date: 02/01/18 Principal diagnosis: Severe pancreatitis Confusion resolved alert and oriented 3 this morning. Improvement in abdominal pain. Tolerating clear liquids. Lipase normalized. White count improving. Afebrile. Hungry. Objective - Vital Signs Vital signs: Vital Signs Temp 98.4 F 01/31/18 15:01 Pulse 108 H 02/01/18 04:04 Resp 28 H 02/01/18 07:50 BP 155/89 02/01/18 04:04 Pulse Ox 92 L 02/01/18 04:04 Intake & Output 01/31/18 02/01/18 02/01/18 18:59 06:59 18:59 Intake Total 5 1500 50 Output Total 1350 1025 200 Balance -1345 475 -150 Weight 83.915 kg 83.915 kg 83.915 kg Intake: Oral 5 1500 50 Output: Urine 1100 1025 200 Post Void Residual 250 Other: Voiding Method Urinal Urinal Urinal # Voids 1 - Exam General appearance: The patient is alert 3 no acute distress. HET: Head is normocephalic and atraumatic. Pupils are equal and reactive. Oropharynx is clear without lesions. Neck: Supple without lymphadenopathy. Trachea midline. Heart: S1 S2. Regular rate and rhythm. Lungs: No crackles or wheezes are heard. Abdomen: Soft, mild midepigastric tenderness, nondistended with bowel sounds. No peritoneal signs. No palpable organomegaly or masses. Extremities: Normal skin color and turgor. No cyanosis, rash, ulceration, clubbing, or edema. Radial and pedal pulses are 2/4 bilaterally. Neurological: No focal deficits. Strength and sensation are grossly intact. - Labs CBC & Chem 7: 02/01/18 07:43 02/01/18 07:43 Labs: Abnormal Lab Results - Last 24 Hours (Table) 01/30/18 02/01/18 02/01/18 Range/Units 05:30 06:00 07:43 WBC 26.1 H* (3.8-10.6) k/uL RBC 4.06 L (4.30-5.90) m/uL Hgb 12.9 L (13.0-17.5) gm/dL Hct 37.7 L (39.0-53.0) % Neutrophils # 24.2 H (1.3-7.7) k/uL Lymphocytes # 0.5 L (1.0-4.8) k/uL Monocytes # 1.1 H (0-1.0) k/uL POC Glucose (mg/dL) 73 L (75-99) mg/dL Calcium (8.4-10.2) mg/dL Total Protein (6.3-8.2) g/dL Albumin (3.5-5.0) g/dL Urine Opiates Screen Detected H (NotDetected) U Benzodiazepines Scrn Detected H (NotDetected) 02/01/18 Range/Units 07:43 WBC (3.8-10.6) k/uL RBC (4.30-5.90) m/uL Hgb (13.0-17.5) gm/dL Hct (39.0-53.0) % Neutrophils # (1.3-7.7) k/uL Lymphocytes # (1.0-4.8) k/uL Monocytes # (0-1.0) k/uL POC Glucose (mg/dL) (75-99) mg/dL Calcium 7.4 L (8.4-10.2) mg/dL Total Protein 4.7 L (6.3-8.2) g/dL Albumin 2.5 L (3.5-5.0) g/dL Urine Opiates Screen (NotDetected) U Benzodiazepines Scrn (NotDetected) Microbiology - Last 24 Hours (Table) 01/30/18 00:02 Blood Culture - Preliminary Blood No Growth after 48 hours 01/30/18 00:02 Blood Culture - Preliminary Blood No Growth after 48 hours 01/30/18 05:30 Urine Culture - Final Urine,Voided Assessment and Plan (1) Acute pancreatitis Narrative/Plan: Severe sepsis with confusion Current Visit: Yes Status: Acute Code(s): K85.90 - ACUTE PANCREATITIS WITHOUT NECROSIS OR INFECTION, UNSP SNOMED Code(s): 966889828 (2) Confusion Narrative/Plan: Resolved Current Visit: Yes Status: Acute Code(s): R41.0 - DISORIENTATION, UNSPECIFIED SNOMED Code(s): 034055050 Plan: 1. Continue IV antibiotics and fluids. Daily CBC. Low-fat diet. EGD 24-48 hours. Continue with Protonix. 2. We'll follow closely with you. Assessment and plan a care discussed with Dr. Westbrook
--- NOTE | 2018-02-01 11:22 | P.PN ---
Subjective Progress Note Date: 02/01/18 72-year-old male patient was hospitalized for an acute pancreatitis. From a pancreatitis standpoint, the patient is improving and the amylase lipase has subsided and there on the decline. Meanwhile the patient becomes delirious. The patient becomes altered in terms of mentation and the patient becomes agitated. The patient also developed some hypoxic respiratory failure and development of bilateral pulmonary infiltrate and effusions. On today's evaluation this patient is being seen in the follow-up. He is feeling better. Is less confused compared to yesterday. No agitation. Factor II point restraints were taken off. Overnight the patient has required a combination of Haldol and Ativan and this morning he seems to be communicating and answering questions appropriately. Note that he denies having any history of alcoholism. CAT scan of the brain has been negative. No fever or chills. No neck stiffness. White cell count is gradually improving. He is afebrile for now. Follow pulmonary standpoint, the patient has some limited congested cough. No safety sputum production. No chest pain. No apparent signs of any respiratory distress. No reported aspiration. Pulse ox is 92% on 3 L of oxygen nasal cannula. His breathing is nonlabored. His white cell count is down to 26. Hemoglobin stable at 12.9. The patient's electrolytes all within normal limits. Renal function is within normal limits. Calcium level is at 7.4. Lipase level is down to 189 from today. The urine cultures been negative. Blood cultures been negative. Objective - Vital Signs Vital signs: Vital Signs Temp 98.4 F 01/31/18 15:01 Pulse 108 H 02/01/18 04:04 Resp 28 H 02/01/18 07:50 BP 155/89 02/01/18 04:04 Pulse Ox 92 L 02/01/18 04:04 Intake & Output 01/31/18 02/01/18 02/01/18 18:59 06:59 18:59 Intake Total 5 1500 50 Output Total 1350 1025 200 Balance -1345 475 -150 Weight 83.915 kg 83.915 kg 83.915 kg Intake: Oral 5 1500 50 Output: Urine 1100 1025 200 Post Void Residual 250 Other: Voiding Method Urinal Urinal Urinal # Voids 1 - Exam General appearance: The patient is alert 3 no acute distress. HET: Head is normocephalic and atraumatic. Pupils are equal and reactive. Oropharynx is clear without lesions. Neck: Supple without lymphadenopathy. Trachea midline. Heart: S1 S2. Regular rate and rhythm. Lungs: Few crackles and wheezes in lung bases bilaterally especially in the lung bases Abdomen: Soft, mild midepigastric tenderness, nondistended with bowel sounds. No peritoneal signs. No palpable organomegaly or masses. Extremities: Normal skin color and turgor. No cyanosis, rash, ulceration, clubbing, or edema. Radial and pedal pulses are 2/4 bilaterally. Neurological: No focal deficits. Strength and sensation are grossly intact. Patient is following commands and answering questions appropriately. He has adequate motor function in all 4 extremities and the motor function symmetrical. No Babinski. No clonus. Examination of the skin revealed no evidence of significant rashes, suspicious appearing nevi or other concerning lesions. - Labs CBC & Chem 7: 02/01/18 07:43 02/01/18 07:43 Labs: Abnormal Lab Results - Last 24 Hours (Table) 01/30/18 02/01/18 02/01/18 Range/Units 05:30 06:00 07:43 WBC 26.1 H* (3.8-10.6) k/uL RBC 4.06 L (4.30-5.90) m/uL Hgb 12.9 L (13.0-17.5) gm/dL Hct 37.7 L (39.0-53.0) % Neutrophils # 24.2 H (1.3-7.7) k/uL Lymphocytes # 0.5 L (1.0-4.8) k/uL Monocytes # 1.1 H (0-1.0) k/uL POC Glucose (mg/dL) 73 L (75-99) mg/dL Calcium (8.4-10.2) mg/dL Total Protein (6.3-8.2) g/dL Albumin (3.5-5.0) g/dL Urine Opiates Screen Detected H (NotDetected) U Benzodiazepines Scrn Detected H (NotDetected) 02/01/18 Range/Units 07:43 WBC (3.8-10.6) k/uL RBC (4.30-5.90) m/uL Hgb (13.0-17.5) gm/dL Hct (39.0-53.0) % Neutrophils # (1.3-7.7) k/uL Lymphocytes # (1.0-4.8) k/uL Monocytes # (0-1.0) k/uL POC Glucose (mg/dL) (75-99) mg/dL Calcium 7.4 L (8.4-10.2) mg/dL Total Protein 4.7 L (6.3-8.2) g/dL Albumin 2.5 L (3.5-5.0) g/dL Urine Opiates Screen (NotDetected) U Benzodiazepines Scrn (NotDetected) Microbiology - Last 24 Hours (Table) 01/30/18 00:02 Blood Culture - Preliminary Blood No Growth after 48 hours 01/30/18 00:02 Blood Culture - Preliminary Blood No Growth after 48 hours 01/30/18 05:30 Urine Culture - Final Urine,Voided Assessment and Plan Plan: Assessment 1 acute pancreatitis, etiology is not clear. The patient is a nonalcoholic. No evidence of any gallbladder disease or cholelithiasis. Lipase level is normalized and the patient is being gradually advanced in terms of his diet 2 altered mentation, delirium, improving 3 acute hypoxic respiratory failure with small better pleural effusion and atelectasis in lung bases. No evidence of any pneumonia. No evidence of any pulmonary embolism. Currently on 3 L of oxygen nasal cannula with a pulse ox of 90-90%. 4 leukocytosis, improving 5 hyperlipidemia 6 generalized arthritis Plan Advance diet as tolerated. Provide the patient incentive spirometer. Give the patient 20 mg of IV Lasix. The patient has been a significant amount of positive fluid balance over the past few days and he would benefit from diuresis. Aspiration precautions. Ablate the patient the hallway. Hold Haldol and Ativan for now. GI is on the case. IVs on the case. Monitor the white cell count. We'll continue to follow.
[2018-02-01 12:30] LABS: Glucose,Whole Blood 86 mg/dL (75-99)
[2018-02-01] MEDS: ACETAMINOPHEN TAB 325 MG TAB PO PRN ×2 (13:31→19:09)
[2018-02-01 17:27] LABS: Glucose,Whole Blood 97 mg/dL (75-99)
--- NOTE | 2018-02-01 18:10 | EEG ---
ELECTROENCEPHALOGRAM REPORT DATE OF EE02/01/2018. REFERRING PHYSICIAN: Dr. Tineo. CONSULTING AND INTERPRETING PHYSICIAN: Dr. Jered Browning. INDICATION FOR EXAMINATION: This patient is a 72-year-old male being evaluated for acute confusion and altered mental status. Patient admitted with acute abdominal pain with nausea, vomiting symptoms. AGE: 72. EEG FINDINGS: A routine 21 channel awake digital EEG recording was accomplished utilizing the 10-20 international system with bipolar and referential montages. The background activity in the most alert resting state consists of a low to medium amplitude, poorly developed and poorly sustained 6 Hz activity over the posterior head regions. This posterior rhythm attenuates minimally to eye opening. There is a small amount of low amplitude 18-20 Hz beta activity seen maximally over the anterior head regions. Muscle and movement artifact was observed on a few occasions during the tracing. Hyperventilation was not performed. Photic stimulation at flash frequencies of 2-30 Hz produced a minimal occipital driving response. No epileptiform discharges were seen. IMPRESSION: This EEG is moderately abnormal in a diffuse fashion due to slowing of the EEG background. The EEG failed to reveal any focal, lateralized or epileptiform abnormalities. Clinical correlation is recommended. MMODL / IJN: [id number] /
[2018-02-01 19:05] LABS: Hemoglobin A1C 5.9 % (4.0-6.0)
[2018-02-01] MEDS: GABAPENTIN 300 MG CAP PO SCH (20:49)
[2018-02-01] MEDS: HYDROcodone/APAP 5-325MG 1 EACH TAB PO PRN (22:29)
--- NOTE | 2018-02-01 22:31 | P.PN ---
Subjective Progress Note Date: 02/01/18 Principal diagnosis: Acute Pancreatitis Patient 72-year-old male presenting to the emergency room today by EMS, with chief complaint of symptoms of nausea vomiting started approximately midnight. Does admit to eating out last night. States woke up approximately midnight with feeling nauseous. States had approximately 3 or 4 episodes of vomiting. States he had a small amount of diarrhea. Patient does admit to cramping throughout the abdomen. Patient denies any other complaints at this time. Patient denies any recent fever, chills, shortness of breath, chest pain, back pain, numbness or tingling, dysuria or hematuria, constipation, headaches or visual changes, or any other complaints. ABDOMEN ULTRASOUND DEMONSTRATES A HEPATIC CYST WITH NO DEFINITIVE EVIDENCE OF GALLSTONE. 01/30/2018 Patient is still having epigastric abdominal pain. Improved compared to yesterday. Lipase level is trending down as well. Otherwise patient was found have significant leukocytosis at 43.1 which is trending down to 39.8 today. He was started on Zosyn empirically. T-max today's 101.4 CT abdomen showed extensive PD pancreatic inflammatory changes and small amount of fluid. Intermittently change also involves the duodenum therefore peptic ulcer disease would also be in differential diagnosis. Patient is being followed by GI and ID at this time. Patient is nothing by mouth. Continued on IV fluids and pain medications. Of chest pain or shortness of breath. 01/31/2018 Patient was confused last night and was hypoxic. D-dimer was elevated and CTA chest was done showed no evidence of pulmonary embolism. Pleural effusions and small pericardial effusion and mild basilar pulmonary infiltrates and atelectasis was noted. CT head showed no acute intracranial process. WBC count is trending down to 32.7 today. lipase level is trending down as well. Abdominal pain otherwise improved. Patient will be started on clear liquids. GI is planning for EGD likely tomorrow to evaluate for peptic ulcer disease. Patient is afebrile today otherwise Currently on antibiotics in the form of Zosyn and metronidazole. Patient is confused at times. Denied any chest pain. No nausea vomiting. No diarrhea. 02/01/2018 Patient is more awake and oriented today. WBC count is trending down to 26.1. Otherwise tolerating oral diet. No complaints of abdominal pain. No nausea vomiting. No chest pain or shortness of breath. GI is planning for endoscopy next 24-48 hours. Patient was seen by neurology and thought confusion is most likely secondary to sepsis and possible EtOH withdrawal was suspected as well.. EEG was ordered to rule out seizures. All other review of systems negative except the above Active Medications Acetaminophen (Tylenol Tab) 650 mg PO Q6HR PRN PRN Reason: Mild Pain or Fever > 100.5 Last Admin: 01/29/18 23:20 Dose: 650 mg Hydrocodone Bitart/Acetaminophen ([place] 5-325) 1 each PO Q4HR PRN PRN Reason: Moderate Pain Last Admin: 01/31/18 09:42 Dose: 1 each Gabapentin (Neurontin) 300 mg PO HS [facility]ATT Last Admin: 01/30/18 20:48 Dose: 300 mg Haloperidol Lactate (Haldol) 5 mg IM Q6HR PRN PRN Reason: Delirium Heparin Sodium (Porcine) (Heparin) 5,000 unit SQ Q12HR [facility] Last Admin: 01/31/18 07:10 Dose: 5,000 unit Metronidazole 500 mg/ IV (Solution) 100 mls @ 100 mls/hr IVPB Q6HR [facility] Last Admin: 01/31/18 11:12 Dose: 100 mls/hr Piperacillin/Tazobactam/ (Dextrose 3.375 gm/ IV Solution) 50 mls @ 12.5 mls/hr IVPB Q8H [facility] Last Admin: 01/31/18 09:41 Dose: 12.5 mls/hr Sodium Chloride (Saline 0.9%) 1,000 mls @ 125 mls/hr IV .Q8H [facility] Last Admin: 01/31/18 14:49 Dose: 125 mls/hr Lorazepam (Ativan) 1 mg IV Q6HR PRN PRN Reason: Anxiety Morphine Sulfate (Morphine Sulfate (Inj)) 4 mg IV Q4HR PRN PRN Reason: Severe Pain Last Admin: 01/30/18 20:48 Dose: 4 mg Naloxone HCl (Narcan) 0.2 mg IV Q2M PRN PRN Reason: Opioid Reversal Ondansetron HCl (Zofran) 4 mg IVP Q8HR PRN PRN Reason: Nausea And Vomiting Last Admin: 01/29/18 00:14 Dose: 4 mg Pantoprazole Sodium (Protonix) 40 mg IVP DAILY [facility] Last Admin: 01/31/18 07:11 Dose: 40 mg Objective - Vital Signs Vital signs: Vital Signs Temp 99.4 F 02/01/18 14:40 Pulse 101 H 02/01/18 14:40 Resp 22 02/01/18 14:40 BP 121/61 02/01/18 14:40 Pulse Ox 92 L 02/01/18 14:40 Intake & Output 01/31/18 02/01/18 02/01/18 18:59 06:59 18:59 Intake Total 5 1500 1500 Output Total 1350 1025 400 Balance -3037 111 3767 Weight 83.915 kg 83.915 kg 83.915 kg Intake: Oral 5 1500 1500 Output: Urine 1100 1025 400 Post Void Residual 250 Other: Voiding Method Urinal Urinal Urinal # Voids 1 4 - Exam PHYSICAL EXAMINATION: Patient is lying in the bed comfortably, no acute distress, awake alert and oriented. Slightly confused.. HEENT: Normocephalic. Neck is supple. Pupils reactive. Nostrils clear. Oral cavity is moist. Ears reveal no drainage. Neck reveals no JVD, carotid bruits, or thyromegaly. CHEST EXAMINATION: Trachea is central. Symmetrical expansion. Diminished bibasilar air entry. Lung blakely clear to auscultation and percussion. CARDIAC: Normal S1, S2 with no gallops. No murmurs ABDOMEN: Soft. Epigastric mild tenderness. No guarding no rigidity. Bowel sounds normal. No organomegaly. No abdominal bruits. Extremities: reveal no edema. No clubbing or cyanosis Neurologically awake, alert, oriented x2-3 with well-coordinated movements. No focal deficits noted Skin: No rash or skin lesions. Psychiatric: Cooperative. Nonsuicidal Musculoskeletal: No joint swelling or deformity. Normal range of motion. - Labs CBC & Chem 7: 02/01/18 07:43 02/01/18 07:43 Labs: Abnormal Lab Results - Last 24 Hours (Table) 02/01/18 02/01/18 02/01/18 Range/Units 06:00 07:43 07:43 WBC 26.1 H* (3.8-10.6) k/uL RBC 4.06 L (4.30-5.90) m/uL Hgb 12.9 L (13.0-17.5) gm/dL Hct 37.7 L (39.0-53.0) % Neutrophils # 24.2 H (1.3-7.7) k/uL Lymphocytes # 0.5 L (1.0-4.8) k/uL Monocytes # 1.1 H (0-1.0) k/uL POC Glucose (mg/dL) 73 L (75-99) mg/dL Calcium 7.4 L (8.4-10.2) mg/dL Total Protein 4.7 L (6.3-8.2) g/dL Albumin 2.5 L (3.5-5.0) g/dL Microbiology - Last 24 Hours (Table) 01/30/18 00:02 Blood Culture - Preliminary Blood No Growth after 48 hours 01/30/18 00:02 Blood Culture - Preliminary Blood No Growth after 48 hours 01/30/18 05:30 Urine Culture - Final Urine,Voided Assessment and Plan Assessment: Acute hypoxic respiratory failure likely due to pleural effusion and mild basilar pulmonary infiltrate and atelectasis. Improved now.. PE ruled out. Currently on nasal cannula oxygen. Acute delirium. Improving. Unlikely encephalopathy. Acute pancreatitis with significantly elevated lipase level. Etiology unknown. Patient does not have a history of alcohol abuse. Suspected peptic ulcer disease as per CT abdomen Sepsis with Leukocytosis 43.1-->39-8--32.7 --26.1 and fever. Likely due to #1. Afebrile now. On empiric antibiotics with Zosyn and Flagyl Hyperglycemia LDL 22 and triglyceride level 45 Remote history of smoking DVT prophylaxis Plan: Patient will be continued on IV fluids and pain medications. Continue with the Protonix IV. GI is planning for EGD .Monitor CBC and BMP tomorrow. Incentive spirometry. Continue with antibiotics and further recommendations based on the clinical course. GI and pulmonary is following. Time with Patient: Greater than 30
--- NOTE | 2018-02-01 23:52 | PN ---
PROGRESS NOTE DATE OF SERVICE: 02/01/2018 REASON FOR FOLLOWUP: Acute pancreatitis. INTERVAL HISTORY: The patient is afebrile. His mentation seems to be much better compared to yesterday. He is breathing comfortably. Abdominal pain is currently controlled. Denies having any chest pain, shortness of breath or cough or any diarrhea. PHYSICAL EXAMINATION: Blood pressure 121/61 with a pulse of 101, temperature 99.4. He is 92% on 3 L nasal cannula. General description is an elderly male lying in bed in no distress. RESPIRATORY SYSTEM: Unlabored breathing. Clear to auscultation anteriorly. HEART: S1, S2. Regular rate and rhythm. ABDOMEN: Soft. Mildly distended. No guarding or rigidity. LABS: Hemoglobin is 12.8, white count 26.1 with a BUN of 15, creatinine 0.84. DIAGNOSTIC IMPRESSION AND PLAN: Patient with acute pancreatitis in a patient who did have abdominal sepsis, fever, elevated white count. Currently covered with Zosyn. That will continue. White count has been on a downward trend and blood culture has been negative so far. Will continue to monitor his clinical course closely. MMODL / IJN: [id number] / TYREE
[2018-02-02 00:12] LABS: Glucose,Whole Blood 110 mg/dL (75-99)
[2018-02-02] MEDS: PIPERACILLIN-TAZOBACTAM 3.375 GM in DEXTROSE/WATER 1 50ML.BAG IVPB SCH ×3 (02:01→17:12)
[2018-02-02 06:22] LABS: Glucose,Whole Blood 94 mg/dL (75-99)
[2018-02-02] MEDS: metroNIDAZOLE-NS PMX 500 MG in SALINE 1 100ML.BAG IVPB SCH (06:27)
[2018-02-02] MEDS: SODIUM CHLORIDE 0.9% 1,000 ML IV SCH ×2 (06:29→15:06)
[2018-02-02] MEDS: HEPARIN SODIUM,PORCINE 5,000 UNIT/ML 1 ML VIAL SQ SCH ×2 (07:33→21:49)
[2018-02-02] MEDS: PANTOPRAZOLE 40 MG/10 ML VIAL IVP SCH (07:33)
--- NOTE | 2018-02-02 08:35 | P.PN ---
Subjective Progress Note Date: 02/02/18 Principal diagnosis: Severe pancreatitis Feels better. Anticipating DC. Afebrile. Tolerating regular diet. Morning labs pending. Objective - Vital Signs Vital signs: Vital Signs Temp 99.7 F H 02/02/18 06:25 Pulse 105 H 02/02/18 06:25 Resp 20 02/02/18 06:25 BP 158/77 02/02/18 06:25 Pulse Ox 90 L 02/02/18 06:25 Intake & Output 02/01/18 02/02/18 02/02/18 18:59 06:59 18:59 Intake Total 1737 1800 Output Total 400 1400 Balance 1337 400 Weight 83.915 kg 83.915 kg Intake: Oral 1737 1800 Output: Urine 400 1400 Other: Voiding Method Urinal Urinal # Voids 4 1 # Bowel Movements 1 - Exam General appearance: The patient is alert 3 no acute distress. HET: Head is normocephalic and atraumatic. Pupils are equal and reactive. Oropharynx is clear without lesions. Neck: Supple without lymphadenopathy. Trachea midline. Heart: S1 S2. Regular rate and rhythm. Lungs: No crackles or wheezes are heard. Abdomen: Soft, very mild midepigastric tenderness, nondistended with bowel sounds. No peritoneal signs. No palpable organomegaly or masses. Extremities: Normal skin color and turgor. No cyanosis, rash, ulceration, clubbing, or edema. Radial and pedal pulses are 2/4 bilaterally. Neurological: No focal deficits. Strength and sensation are grossly intact. - Labs CBC & Chem 7: 02/01/18 07:43 02/01/18 07:43 Labs: Abnormal Lab Results - Last 24 Hours (Table) 02/01/18 02/01/18 02/02/18 Range/Units 07:43 07:43 00:09 WBC 26.1 H* (3.8-10.6) k/uL RBC 4.06 L (4.30-5.90) m/uL Hgb 12.9 L (13.0-17.5) gm/dL Hct 37.7 L (39.0-53.0) % Neutrophils # 24.2 H (1.3-7.7) k/uL Lymphocytes # 0.5 L (1.0-4.8) k/uL Monocytes # 1.1 H (0-1.0) k/uL POC Glucose (mg/dL) 110 H (75-99) mg/dL Calcium 7.4 L (8.4-10.2) mg/dL Total Protein 4.7 L (6.3-8.2) g/dL Albumin 2.5 L (3.5-5.0) g/dL Microbiology - Last 24 Hours (Table) 01/30/18 00:02 Blood Culture - Preliminary Blood No Growth after 72 hours 01/30/18 00:02 Blood Culture - Preliminary Blood No Growth after 72 hours Assessment and Plan (1) Acute pancreatitis Narrative/Plan: Severe sepsis etiology of pancreatitis is unclear Current Visit: Yes Status: Acute Code(s): K85.90 - ACUTE PANCREATITIS WITHOUT NECROSIS OR INFECTION, UNSP SNOMED Code(s): 588171383 (2) Confusion Narrative/Plan: Resolved Current Visit: Yes Status: Acute Code(s): R41.0 - DISORIENTATION, UNSPECIFIED SNOMED Code(s): 221249401 Plan: 1. Continue IV antibiotics and fluids. Daily CBC. Low-fat diet. EGD not planned at this time considering abdominal pain has nearly resolved white count trending down and patient is tolerating diet. He is receiving empiric therapy for possible peptic ulcer disease. Return to office in 1-2 weeks for reevaluation. Discharge with Protonix 40 mg daily. 2. We'll follow closely with you. Assessment and plan a care discussed with Dr. Westbrook
[2018-02-02 10:13] LABS: Basophils % (A) 0 %; Eosinophils # (A) 0.1 k/uL (0-0.7); Eosinophils % (A) 1 %; HCT 41.2 % (39.0-53.0); HGB 13.7 gm/dL (13.0-17.5); Lymphocytes # (A) 0.5 k/uL (1.0-4.8); Lymphocytes % (A) 2 %; MCH 31.1 pg (25.0-35.0); MCHC 33.3 g/dL (31.0-37.0); MCV 93.5 fL (80.0-100.0); Mean Platelet Volume 7.6; Monocytes % (A) 5 %; Neutrophils # (A) 18.7 k/uL (1.3-7.7); Neutrophils % (A) 91 %; Platelet Count 249 k/uL (150-450); RDW 14.4 % (11.5-15.5); WBC 20.5 k/uL (3.8-10.6)
[2018-02-02 11:57] LABS: Glucose,Whole Blood 108 mg/dL (75-99)
[2018-02-02] MEDS: metroNIDAZOLE 500 MG TAB PO SCH ×3 (12:04→21:50)
--- NOTE | 2018-02-02 14:42 | P.PN ---
Subjective Progress Note Date: 02/02/18 Principal diagnosis: Acute hypoxic respiratory failure secondary to bilateral pleural effusions, bilateral atelectasis/infiltrate. Acute pancreatitis. Objective - Vital Signs Vital signs: Vital Signs Temp 99.7 F H 02/02/18 06:25 Pulse 105 H 02/02/18 06:25 Resp 20 02/02/18 06:25 BP 158/77 02/02/18 06:25 Pulse Ox 92 L 02/02/18 11:56 Intake & Output 02/01/18 02/02/18 02/02/18 18:59 06:59 18:59 Intake Total 1737 1800 320 Output Total 400 1400 Balance 1337 400 320 Weight 83.915 kg 83.915 kg 83.915 kg Intake: Oral 1737 1800 320 Output: Urine 400 1400 Other: Voiding Method Urinal Urinal # Voids 4 1 # Bowel Movements 1 - Labs CBC & Chem 7: 02/02/18 09:54 02/01/18 07:43 Labs: Abnormal Lab Results - Last 24 Hours (Table) 02/02/18 02/02/18 02/02/18 Range/Units 00:09 09:54 11:51 WBC 20.5 H (3.8-10.6) k/uL Neutrophils # 18.7 H (1.3-7.7) k/uL Lymphocytes # 0.5 L (1.0-4.8) k/uL POC Glucose (mg/dL) 110 H 108 H (75-99) mg/dL Microbiology - Last 24 Hours (Table) 01/30/18 00:02 Blood Culture - Preliminary Blood No Growth after 72 hours 01/30/18 00:02 Blood Culture - Preliminary Blood No Growth after 72 hours Assessment and Plan Assessment: Impression: #1 Acute hypoxic respiratory failure secondary to bilateral pleural effusions, bilateral atelectasis/infiltrate. Pulmonary embolism ruled out. #2 Acute pancreatitis with possible acute peptic ulcer disease. #3 Leukocytosis secondary to above. #4 Acute sepsis secondary to above. #5 Remote history of 25 year pack per day smoking however quit approximate 40 years ago. #6 Hyperlipidemia. #7 Osteoarthritis. #8 History of previous MRSA infection. Plan: The patient was seen and evaluated by Dr. Ott. He is currently stable from the pulmonary standpoint. Maintaining O2 saturations in the 90s on room air. We'll follow him on as-needed basis. I, the cosigning physician, performed a history & physical examination of the patient. Lungs sounds have crackles in the bilateral posterior bases. Maintaining good O2 saturations in the 90s on room air. I discussed the assessment and plan of care with my nurse practitioner, Irasema Estrella. I attest to the above note as dictated by her.
[2018-02-02 17:21] LABS: Glucose,Whole Blood 99 mg/dL (75-99)
[2018-02-02] MEDS: GABAPENTIN 300 MG CAP PO SCH (21:49)
--- NOTE | 2018-02-02 21:52 | P.PN ---
Subjective Progress Note Date: 02/02/18 Principal diagnosis: Acute Pancreatitis Patient 72-year-old male presenting to the emergency room today by EMS, with chief complaint of symptoms of nausea vomiting started approximately midnight. Does admit to eating out last night. States woke up approximately midnight with feeling nauseous. States had approximately 3 or 4 episodes of vomiting. States he had a small amount of diarrhea. Patient does admit to cramping throughout the abdomen. Patient denies any other complaints at this time. Patient denies any recent fever, chills, shortness of breath, chest pain, back pain, numbness or tingling, dysuria or hematuria, constipation, headaches or visual changes, or any other complaints. ABDOMEN ULTRASOUND DEMONSTRATES A HEPATIC CYST WITH NO DEFINITIVE EVIDENCE OF GALLSTONE. 01/30/2018 Patient is still having epigastric abdominal pain. Improved compared to yesterday. Lipase level is trending down as well. Otherwise patient was found have significant leukocytosis at 43.1 which is trending down to 39.8 today. He was started on Zosyn empirically. T-max today's 101.4 CT abdomen showed extensive PD pancreatic inflammatory changes and small amount of fluid. Intermittently change also involves the duodenum therefore peptic ulcer disease would also be in differential diagnosis. Patient is being followed by GI and ID at this time. Patient is nothing by mouth. Continued on IV fluids and pain medications. Of chest pain or shortness of breath. 01/31/2018 Patient was confused last night and was hypoxic. D-dimer was elevated and CTA chest was done showed no evidence of pulmonary embolism. Pleural effusions and small pericardial effusion and mild basilar pulmonary infiltrates and atelectasis was noted. CT head showed no acute intracranial process. WBC count is trending down to 32.7 today. lipase level is trending down as well. Abdominal pain otherwise improved. Patient will be started on clear liquids. GI is planning for EGD likely tomorrow to evaluate for peptic ulcer disease. Patient is afebrile today otherwise Currently on antibiotics in the form of Zosyn and metronidazole. Patient is confused at times. Denied any chest pain. No nausea vomiting. No diarrhea. 02/01/2018 Patient is more awake and oriented today. WBC count is trending down to 26.1. Otherwise tolerating oral diet. No complaints of abdominal pain. No nausea vomiting. No chest pain or shortness of breath. GI is planning for endoscopy next 24-48 hours. Patient was seen by neurology and thought confusion is most likely secondary to sepsis and possible EtOH withdrawal was suspected as well.. EEG was ordered to rule out seizures. 02/02/2018 Patient is awake and oriented. Tolerating liquid diet and advance as tolerated. Otherwise patient did improve symptomatically and no commerce abdominal pain. Pelvis record is trending down to 20 today. Otherwise GI deferred by for endoscopy when the hospital with clinical improvement. Recommend outpatient follow with GI clinic in 1-2 weeks. Otherwise hemoglobin is stable. Advance diet as tolerated. No complains of chest pain or shortness of breath. Anticipate discharged to home and follow-up as an outpatient. Possible discharge in next 24 hours. All other review of systems negative except the above Active Medications Acetaminophen (Tylenol Tab) 650 mg PO Q6HR PRN PRN Reason: Mild Pain or Fever > 100.5 Last Admin: 01/29/18 23:20 Dose: 650 mg Hydrocodone Bitart/Acetaminophen ([place] 5-325) 1 each PO Q4HR PRN PRN Reason: Moderate Pain Last Admin: 01/31/18 09:42 Dose: 1 each Gabapentin (Neurontin) 300 mg PO HS [facility] Last Admin: 01/30/18 20:48 Dose: 300 mg Haloperidol Lactate (Haldol) 5 mg IM Q6HR PRN PRN Reason: Delirium Heparin Sodium (Porcine) (Heparin) 5,000 unit SQ Q12HR [facility] Last Admin: 01/31/18 07:10 Dose: 5,000 unit Metronidazole 500 mg/ IV (Solution) 100 mls @ 100 mls/hr IVPB Q6HR [facility] Last Admin: 01/31/18 11:12 Dose: 100 mls/hr Piperacillin/Tazobactam/ (Dextrose 3.375 gm/ IV Solution) 50 mls @ 12.5 mls/hr IVPB Q8H [facility] Last Admin: 01/31/18 09:41 Dose: 12.5 mls/hr Sodium Chloride (Saline 0.9%) 1,000 mls @ 125 mls/hr IV .Q8H [facility] Last Admin: 01/31/18 14:49 Dose: 125 mls/hr Lorazepam (Ativan) 1 mg IV Q6HR PRN PRN Reason: Anxiety Morphine Sulfate (Morphine Sulfate (Inj)) 4 mg IV Q4HR PRN PRN Reason: Severe Pain Last Admin: 01/30/18 20:48 Dose: 4 mg Naloxone HCl (Narcan) 0.2 mg IV Q2M PRN PRN Reason: Opioid Reversal Ondansetron HCl (Zofran) 4 mg IVP Q8HR PRN PRN Reason: Nausea And Vomiting Last Admin: 01/29/18 00:14 Dose: 4 mg Pantoprazole Sodium (Protonix) 40 mg IVP DAILY [facility] Last Admin: 01/31/18 07:11 Dose: 40 mg Objective - Vital Signs Vital signs: Vital Signs Temp 98.4 F 02/02/18 15:00 Pulse 111 H 02/02/18 15:00 Resp 16 02/02/18 15:00 BP 135/74 02/02/18 15:00 Pulse Ox 88 L 02/02/18 15:00 Intake & Output 02/02/18 02/02/18 02/03/18 06:59 18:59 06:59 Intake Total 1800 520 Output Total 1400 500 Balance 400 20 Weight 83.915 kg 83.915 kg Intake: Oral 1800 520 Output: Urine 1400 500 Other: Voiding Method Urinal # Voids 1 # Bowel Movements 1 - Exam PHYSICAL EXAMINATION: Patient is lying in the bed comfortably, no acute distress, awake alert and oriented. Slightly confused.. HEENT: Normocephalic. Neck is supple. Pupils reactive. Nostrils clear. Oral cavity is moist. Ears reveal no drainage. Neck reveals no JVD, carotid bruits, or thyromegaly. CHEST EXAMINATION: Trachea is central. Symmetrical expansion. Diminished bibasilar air entry. Lung blakely clear to auscultation and percussion. CARDIAC: Normal S1, S2 with no gallops. No murmurs ABDOMEN: Soft. Epigastric mild tenderness. No guarding no rigidity. Bowel sounds normal. No organomegaly. No abdominal bruits. Extremities: reveal no edema. No clubbing or cyanosis Neurologically awake, alert, oriented x2-3 with well-coordinated movements. No focal deficits noted Skin: No rash or skin lesions. Psychiatric: Cooperative. Nonsuicidal Musculoskeletal: No joint swelling or deformity. Normal range of motion. - Labs CBC & Chem 7: 02/02/18 09:54 02/01/18 07:43 Labs: Abnormal Lab Results - Last 24 Hours (Table) 02/02/18 02/02/18 02/02/18 Range/Units 00:09 09:54 11:51 WBC 20.5 H (3.8-10.6) k/uL Neutrophils # 18.7 H (1.3-7.7) k/uL Lymphocytes # 0.5 L (1.0-4.8) k/uL POC Glucose (mg/dL) 110 H 108 H (75-99) mg/dL Microbiology - Last 24 Hours (Table) 01/30/18 00:02 Blood Culture - Preliminary Blood No Growth after 72 hours 01/30/18 00:02 Blood Culture - Preliminary Blood No Growth after 72 hours Assessment and Plan Assessment: Acute hypoxic respiratory failure likely due to pleural effusion and mild basilar pulmonary infiltrate and atelectasis. Improved now.. PE ruled out. Currently on nasal cannula oxygen. Titrate down to room air. Acute delirium. Improving clinically.. Unlikely encephalopathy. Acute pancreatitis with significantly elevated lipase level. Etiology unknown. Patient does not have a history of alcohol abuse. Suspected peptic ulcer disease as per CT abdomen Sepsis with Leukocytosis 43.1-->39-8--32.7 --26.1 and fever. Likely due to #1. Afebrile now. On empiric antibiotics with Zosyn and Flagyl Hyperglycemia LDL 22 and triglyceride level 45 Remote history of smoking DVT prophylaxis Plan: Patient will be continued on IV fluids and pain medications. Continue with the Protonix IV. GI is planning for EGD as an outpatient. .Monitor CBC and BMP tomorrow. Incentive spirometry. Continue with antibiotics and further recommendations based on the clinical course. GI and pulmonary is following. Time with Patient: Greater than 30
--- NOTE | 2018-02-02 22:50 | PN ---
PROGRESS NOTE DATE OF SERVICE: 02/02/2018 REASON FOR FOLLOWUP: Acute pancreatitis. INTERVAL HISTORY: The patient is afebrile. His abdominal pain seems to have slightly improved. The patient denies significant nausea or vomiting. He denies having any chest pain or shortness of breath or cough. PHYSICAL EXAMINATION: Blood pressure is 135/74 with a pulse of 111, temperature 98.4. He is 92% on 2 L nasal cannula. General description is an elderly male lying in bed in no distress. RESPIRATORY SYSTEM: Unlabored breathing with decreased breath sounds in the base. No wheeze. HEART: S1, S2. Regular rate and rhythm. ABDOMEN: Soft. No guarding or rigidity LABS: Hemoglobin 13.7, white count 20.5. DIAGNOSTIC IMPRESSION AND PLAN: Patient with acute pancreatitis in a patient who did have a fever, elevated white count. His fever has resolved and white count is currently down to 20,000. Patient to continue with Zosyn at this point while watching his clinical course closely. Continue with supportive care. MMODL / IJN: [id number] / MTDD
[2018-02-03 00:04] LABS: Glucose,Whole Blood 91 mg/dL (75-99)
[2018-02-03] MEDS: PIPERACILLIN-TAZOBACTAM 3.375 GM in DEXTROSE/WATER 1 50ML.BAG IVPB SCH ×3 (02:55→17:54)
[2018-02-03] MEDS: SODIUM CHLORIDE 0.9% 1,000 ML IV SCH ×3 (03:47→15:51)
[2018-02-03 07:05] LABS: Glucose,Whole Blood 101 mg/dL (75-99)
[2018-02-03] MEDS: metroNIDAZOLE 500 MG TAB PO SCH ×4 (08:10→22:46)
[2018-02-03] MEDS: PANTOPRAZOLE 40 MG/10 ML VIAL IVP SCH (08:10)
[2018-02-03] MEDS: HEPARIN SODIUM,PORCINE 5,000 UNIT/ML 1 ML VIAL SQ SCH ×2 (08:10→22:47)
[2018-02-03 08:49] LABS: Basophils % (A) 0 %; Eosinophils # (A) 0.3 k/uL (0-0.7); Eosinophils % (A) 1 %; HCT 46.2 % (39.0-53.0); HGB 15.1 gm/dL (13.0-17.5); Lymphocytes # (A) 0.6 k/uL (1.0-4.8); Lymphocytes % (A) 4 %; MCH 30.5 pg (25.0-35.0); MCHC 32.6 g/dL (31.0-37.0); MCV 93.5 fL (80.0-100.0); Mean Platelet Volume 7.5; Monocytes # (A) 1.3 k/uL (0-1.0); Monocytes % (A) 8 %; Neutrophils % (A) 86 %; Platelet Count 279 k/uL (150-450); Poikilocytosis Slight; RBC 4.94 m/uL (4.30-5.90); RDW 14.3 % (11.5-15.5); WBC 17.5 k/uL (3.8-10.6)
[2018-02-03 12:02] LABS: Glucose,Whole Blood 150 mg/dL (75-99)
--- NOTE | 2018-02-03 21:01 | XR ---
EXAMINATION TYPE: XR chest 1V DATE OF EXAM: 02/03/2018 COMPARISON: Correlation CT 01/31/2018 HISTORY: 72-year-old male with fever TECHNIQUE: Single frontal view of the chest is obtained. FINDINGS: Prominent volume loss at the right base with either atelectasis or fluid thickening the minor fissure . Right basilar opacity. Calcified right paratracheal and right hilar lymph nodes. Blunted left costo phrenic angle could represent a trace effusion. Heart upper limits of normal in size. IMPRESSION: Either atelectasis or fluid thickening the minor fissure and small left effusion. Promin ent volume loss at the right base. Underlying infiltrate not excluded.
[2018-02-03] MEDS: GABAPENTIN 300 MG CAP PO SCH (22:46)
--- NOTE | 2018-02-03 23:09 | PN ---
PROGRESS NOTE DATE OF SERVICE: 02/03/2018 REASON FOR FOLLOWUP: Acute pancreatitis with sepsis. INTERVAL HISTORY: The patient did have a low-grade fever of 100.2 last night, afebrile since then. Denies having any chest pain. Abdominal pain has improved. No nausea, no vomiting. Has been tolerating a regular diet by the RN. No diarrhea. EXAMINATION: Blood pressure 136/80 with a pulse of 92, temperature 99.7. He is 93% on 3L nasal cannula. General description is an elderly male lying in bed in no distress. RESPIRATORY SYSTEM: Unlabored breathing with decreased intensity breath sounds. No wheeze. HEART: S1, S2. Regular rate and rhythm. ABDOMEN: Soft. No tenderness. LABS: White count down to 17.5. DIAGNOSTIC IMPRESSION AND PLAN: Patient with sepsis, source is acute pancreatitis. The patient's fever has improved with low-grade fever last night and white count is currently down to 17,000. The patient will be continued on Zosyn, transitioned to oral once he is stable for discharge from other consultants. Continue supportive care. MMODL / IJN: [id number] /
--- NOTE | 2018-02-04 00:07 | P.PN ---
Subjective Progress Note Date: 02/03/18 Principal diagnosis: Acute Pancreatitis Patient 72-year-old male presenting to the emergency room today by EMS, with chief complaint of symptoms of nausea vomiting started approximately midnight. Does admit to eating out last night. States woke up approximately midnight with feeling nauseous. States had approximately 3 or 4 episodes of vomiting. States he had a small amount of diarrhea. Patient does admit to cramping throughout the abdomen. Patient denies any other complaints at this time. Patient denies any recent fever, chills, shortness of breath, chest pain, back pain, numbness or tingling, dysuria or hematuria, constipation, headaches or visual changes, or any other complaints. ABDOMEN ULTRASOUND DEMONSTRATES A HEPATIC CYST WITH NO DEFINITIVE EVIDENCE OF GALLSTONE. 01/30/2018 Patient is still having epigastric abdominal pain. Improved compared to yesterday. Lipase level is trending down as well. Otherwise patient was found have significant leukocytosis at 43.1 which is trending down to 39.8 today. He was started on Zosyn empirically. T-max today's 101.4 CT abdomen showed extensive PD pancreatic inflammatory changes and small amount of fluid. Intermittently change also involves the duodenum therefore peptic ulcer disease would also be in differential diagnosis. Patient is being followed by GI and ID at this time. Patient is nothing by mouth. Continued on IV fluids and pain medications. Of chest pain or shortness of breath. 01/31/2018 Patient was confused last night and was hypoxic. D-dimer was elevated and CTA chest was done showed no evidence of pulmonary embolism. Pleural effusions and small pericardial effusion and mild basilar pulmonary infiltrates and atelectasis was noted. CT head showed no acute intracranial process. WBC count is trending down to 32.7 today. lipase level is trending down as well. Abdominal pain otherwise improved. Patient will be started on clear liquids. GI is planning for EGD likely tomorrow to evaluate for peptic ulcer disease. Patient is afebrile today otherwise Currently on antibiotics in the form of Zosyn and metronidazole. Patient is confused at times. Denied any chest pain. No nausea vomiting. No diarrhea. 02/01/2018 Patient is more awake and oriented today. WBC count is trending down to 26.1. Otherwise tolerating oral diet. No complaints of abdominal pain. No nausea vomiting. No chest pain or shortness of breath. GI is planning for endoscopy next 24-48 hours. Patient was seen by neurology and thought confusion is most likely secondary to sepsis and possible EtOH withdrawal was suspected as well.. EEG was ordered to rule out seizures. 02/02/2018 Patient is awake and oriented. Tolerating liquid diet and advance as tolerated. Otherwise patient did improve symptomatically and no commerce abdominal pain. Pelvis record is trending down to 20 today. Otherwise GI deferred by for endoscopy when the hospital with clinical improvement. Recommend outpatient follow with GI clinic in 1-2 weeks. Otherwise hemoglobin is stable. Advance diet as tolerated. No complains of chest pain or shortness of breath. Anticipate discharged to home and follow-up as an outpatient. Possible discharge in next 24 hours. 02/03/2018 Patient is awake alert and oriented. Otherwise patient still requiring oxygen with another cannula. Repeat chest x-ray today showed either atelectasis of fluid thickening the minor fissure and small left effusion. Prominent volume loss in the right lung base. Underlying infiltrate cannot be excluded Otherwise WBC improved to 17.5 today. Denied any nausea or vomiting. Abdominal pain is much improved. GI is planning for scope as an outpatient. Patient will be continued on incentive spirometry. All other review of systems negative except the above Active Medications Acetaminophen (Tylenol Tab) 650 mg PO Q6HR PRN PRN Reason: Mild Pain or Fever > 100.5 Last Admin: 01/29/18 23:20 Dose: 650 mg Hydrocodone Bitart/Acetaminophen ([place] 5-325) 1 each PO Q4HR PRN PRN Reason: Moderate Pain Last Admin: 01/31/18 09:42 Dose: 1 each Gabapentin (Neurontin) 300 mg PO HS [facility] Last Admin: 01/30/18 20:48 Dose: 300 mg Haloperidol Lactate (Haldol) 5 mg IM Q6HR PRN PRN Reason: Delirium Heparin Sodium (Porcine) (Heparin) 5,000 unit SQ Q12HR [facility] Last Admin: 01/31/18 07:10 Dose: 5,000 unit Metronidazole 500 mg/ IV (Solution) 100 mls @ 100 mls/hr IVPB Q6HR [facility] Last Admin: 01/31/18 11:12 Dose: 100 mls/hr Piperacillin/Tazobactam/ (Dextrose 3.375 gm/ IV Solution) 50 mls @ 12.5 mls/hr IVPB Q8H [facility] Last Admin: 01/31/18 09:41 Dose: 12.5 mls/hr Sodium Chloride (Saline 0.9%) 1,000 mls @ 125 mls/hr IV .Q8H [facility] Last Admin: 01/31/18 14:49 Dose: 125 mls/hr Lorazepam (Ativan) 1 mg IV Q6HR PRN PRN Reason: Anxiety Morphine Sulfate (Morphine Sulfate (Inj)) 4 mg IV Q4HR PRN PRN Reason: Severe Pain Last Admin: 01/30/18 20:48 Dose: 4 mg Naloxone HCl (Narcan) 0.2 mg IV Q2M PRN PRN Reason: Opioid Reversal Ondansetron HCl (Zofran) 4 mg IVP Q8HR PRN PRN Reason: Nausea And Vomiting Last Admin: 01/29/18 00:14 Dose: 4 mg Pantoprazole Sodium (Protonix) 40 mg IVP DAILY [facility] Last Admin: 01/31/18 07:11 Dose: 40 mg Objective - Vital Signs Vital signs: Vital Signs Temp 99.7 F H 02/03/18 15:20 Pulse 92 02/03/18 15:20 Resp 16 02/03/18 15:20 BP 136/80 02/03/18 15:20 Pulse Ox 93 L 02/03/18 15:20 Intake & Output 02/02/18 02/03/18 02/03/18 18:59 06:59 18:59 Intake Total 520 1200 Output Total 500 Balance 20 1200 Weight 83.915 kg Intake: Oral 520 1200 Output: Urine 500 Other: # Voids 2 3 - Exam PHYSICAL EXAMINATION: Patient is lying in the bed comfortably, no acute distress, awake alert and oriented. Slightly confused.. HEENT: Normocephalic. Neck is supple. Pupils reactive. Nostrils clear. Oral cavity is moist. Ears reveal no drainage. Neck reveals no JVD, carotid bruits, or thyromegaly. CHEST EXAMINATION: Trachea is central. Symmetrical expansion. Diminished bibasilar air entry. Lung blakely clear to auscultation and percussion. CARDIAC: Normal S1, S2 with no gallops. No murmurs ABDOMEN: Soft. Epigastric mild tenderness. No guarding no rigidity. Bowel sounds normal. No organomegaly. No abdominal bruits. Extremities: reveal no edema. No clubbing or cyanosis Neurologically awake, alert, oriented x2-3 with well-coordinated movements. No focal deficits noted Skin: No rash or skin lesions. Psychiatric: Cooperative. Nonsuicidal Musculoskeletal: No joint swelling or deformity. Normal range of motion. - Labs CBC & Chem 7: 02/03/18 08:12 02/01/18 07:43 Labs: Abnormal Lab Results - Last 24 Hours (Table) 02/03/18 02/03/18 02/03/18 Range/Units 06:31 08:12 11:58 WBC 17.5 H (3.8-10.6) k/uL Neutrophils # 15.0 H (1.3-7.7) k/uL Lymphocytes # 0.6 L (1.0-4.8) k/uL Monocytes # 1.3 H (0-1.0) k/uL POC Glucose (mg/dL) 101 H 150 H (75-99) mg/dL Microbiology - Last 24 Hours (Table) 01/30/18 00:02 Blood Culture - Preliminary Blood No Growth after 96 hours 01/30/18 00:02 Blood Culture - Preliminary Blood No Growth after 96 hours Assessment and Plan Assessment: Acute hypoxic respiratory failure likely due to pleural effusion and mild basilar pulmonary infiltrate and atelectasis. Improved now.. PE ruled out. Currently still on nasal cannula oxygen. Titrate down to room air. Repeat chest x-ray was done. Acute delirium. Improving clinically.. Unlikely encephalopathy. Acute pancreatitis with significantly elevated lipase level. Etiology unknown. Patient does not have a history of alcohol abuse. Suspected peptic ulcer disease as per CT abdomen Sepsis with Leukocytosis 43.1-->39-8--32.7 --26.1 and fever. Likely due to #1. Afebrile now. On empiric antibiotics with Zosyn and Flagyl Hyperglycemia LDL 22 and triglyceride level 45 Remote history of smoking DVT prophylaxis Plan: Patient will be continued on pain medications. Encourage oral intake. Will hold IV fluids. Continue with the Protonix IV. GI is planning for EGD as an outpatient. .Monitor CBC and BMP tomorrow. Incentive spirometry. Continue with antibiotics and further recommendations based on the clinical course. GI and pulmonary is following. Time with Patient: Greater than 30
[2018-02-04 00:22] LABS: Glucose,Whole Blood 124 mg/dL (75-99)
[2018-02-04] MEDS: SODIUM CHLORIDE 0.9% 1,000 ML IV SCH (02:43)
[2018-02-04] MEDS: PIPERACILLIN-TAZOBACTAM 3.375 GM in DEXTROSE/WATER 1 50ML.BAG IVPB SCH ×3 (02:43→17:29)
[2018-02-04 06:24] LABS: Glucose,Whole Blood 111 mg/dL (75-99)
[2018-02-04] MEDS: metroNIDAZOLE 500 MG TAB PO SCH ×4 (07:25→21:14)
[2018-02-04] MEDS: PANTOPRAZOLE 40 MG/10 ML VIAL IVP SCH (07:25)
[2018-02-04] MEDS: HEPARIN SODIUM,PORCINE 5,000 UNIT/ML 1 ML VIAL SQ SCH ×2 (07:25→21:14)
[2018-02-04] MEDS ORDERED: FUROSEMIDE 10 MG/ML 2 ML VIAL IV STA (13:12)
[2018-02-04] MEDS: GABAPENTIN 300 MG CAP PO SCH (21:14)
--- NOTE | 2018-02-05 00:16 | PN ---
PROGRESS NOTE DATE OF SERVICE: 02/04/2018. REASON FOR FOLLOWUP: Acute pancreatitis with sepsis. INTERVAL HISTORY: The patient is afebrile. He has been breathing comfortably. His abdominal pain has improved. No nausea or vomiting. Has been tolerating a regular diet. Did have some diarrhea. EXAMINATION: Blood pressure 101/56, pulse of 100, temperature 97.9, he is 91% on 3 L nasal cannula. General description is an elderly male lying in bed in no distress. Respiratory system: Unlabored breathing. Clear to auscultation anteriorly. Heart S1, S2. Regular rate and rhythm. There is no tenderness. LABS: White count 17.5. The blood culture has been negative. DIAGNOSTIC IMPRESSION AND PLAN: Patient with sepsis, source of acute pancreatitis, slowly clinically improvement. White count down to 17,000. Currently on Zosyn. Recommend transition to a short course of oral Augmentin on discharge once stable from other consultants. Continue supportive care. MMODL / IJN: [id number] /
[2018-02-05] MEDS: PIPERACILLIN-TAZOBACTAM 3.375 GM in DEXTROSE/WATER 1 50ML.BAG IVPB SCH ×3 (02:13→17:42)
[2018-02-05] MEDS: HEPARIN SODIUM,PORCINE 5,000 UNIT/ML 1 ML VIAL SQ SCH ×2 (09:11→21:08)
[2018-02-05] MEDS: PANTOPRAZOLE 40 MG/10 ML VIAL IVP SCH (09:12)
[2018-02-05] MEDS: metroNIDAZOLE 500 MG TAB PO SCH ×3 (09:12→21:10)
[2018-02-05] MEDS ORDERED: FUROSEMIDE 10 MG/ML 2 ML VIAL IV STA (10:10)
[2018-02-05 10:40] LABS: Anion Gap 6 mmol/L; Blood Urea Nitrogen 14 mg/dL (9-20); Calcium 7.2 mg/dL (8.4-10.2); Carbon Dioxide 33 mmol/L (22-30); Chloride 97 mmol/L (98-107); Glucose 128 mg/dL (74-99); Sodium 136 mmol/L (137-145)
[2018-02-05] MEDS: POTASSIUM CHLORIDE ER 20 MEQ TAB.ER PO SCH ×3 (11:48→14:24)
[2018-02-05 12:06] LABS: Amylase <30 U/L (30-110); Lipase 131 U/L (23-300)
[2018-02-05 12:39] LABS: Basophils # (A) 0.1 k/uL (0-0.2); Basophils % (A) 0 %; Eosinophils # (A) 0.7 k/uL (0-0.7); Eosinophils % (A) 3 %; HCT 36.7 % (39.0-53.0); HGB 12.3 gm/dL (13.0-17.5); Hypochromasia Slight; Lymphocytes # (A) 0.3 k/uL (1.0-4.8); Lymphocytes % (A) 1 %; MCH 31.3 pg (25.0-35.0); MCHC 33.4 g/dL (31.0-37.0); MCV 93.8 fL (80.0-100.0); Mean Platelet Volume 9.3; Monocytes # (A) 1.4 k/uL (0-1.0); Monocytes % (A) 7 %; Neutrophils # (A) 18.6 k/uL (1.3-7.7); Neutrophils % (A) 88 %; Platelet Count 268 k/uL (150-450); Poikilocytosis Slight; RBC 3.91 m/uL (4.30-5.90); RDW 14.8 % (11.5-15.5); WBC 21.1 k/uL (3.8-10.6)
[2018-02-05] MEDS ORDERED: IOPAMIDOL-300 CONTRAST 30 ML VIAL (ORAL USE) PO PRN (13:45)
--- NOTE | 2018-02-05 15:52 | CT ---
EXAMINATION TYPE: CT abdomen w con DATE OF EXAM: 02/05/2018 COMPARISON: 01/28/2018 HISTORY: 72-year-old male follow-up for pancreatitis Pancreatitis. TECHNIQUE: Contiguous axial scanning of the abdomen and pelvis following administration of 125 ml Iso omega 300 IV contrast. Delayed images through the kidneys and coronal/sagittal reconstructions perform ed. CT DLP: 810.1 mGycm Automated exposure control for dose reduction was used. FINDINGS: Heart is normal size with trace anterior basilar pericardial fluid. Ascending aorta ectatic and 3.7 cm. Rounded patchy right basilar atelectasis with trace bilateral ple ural effusions, new in the interval. A couple hypodense lesions in the liver are unchanged, largest measuring 2.1 cm along the right gallb ladder fossa most compatible with cysts. Portal venous system remains patent. Gallbladder mildly hydropic measuring 4.4 cm wide. No biliary ductal dilatation. Adrenal glands, right kidney, and spleen within normal limits. Subcentimeter hypodensity anterior lef t kidney too small for accurate CT characterization, likely cyst. There is markedly worsening inflammation now involving nearly the entire pancreas with extensive inte rstitial edema and low signal areas. Enhancing interspersed pancreatic tissue remains throughout. The re is developing peripancreatic fluid measuring 4 cm along the superior margin of the pancreatic body , axial image 62 and now severe confluent masslike inflammation extending anteriorly and inferiorly f rom the pancreatic body measuring up to 8.8 cm wide, axial image 119. This inflammation encases some mesenteric arteries and veins and there are new borderline sized mesenteric lymph nodes in this regio n. Mild wall thickening of the duodenum and proximal most jejunum suggest reactive inflammation. Mild free fluid seen in the right lower quadrant and trace tracking down the left paracolic gutter an d also in the perihepatic and perisplenic regions. Bones: No osseous destructive process. IMPRESSION: 1. PROGRESSION TO SEVERE DIFFUSE PANCREATITIS WITH EXTENSIVE INTERSTITIAL edema. There is intersperse d enhancing pancreatic tissue throughout the extensive inflammatory changes. 2. Interval development of a poorly defined 4 cm peripancreatic fluid collection superior to the panc reatic body and masslike inflammation which extends inferiorly measuring up to 8.8 cm 3. No portal venous thrombosis or pseudoaneurysm is seen. 4. New mild abdominal ascites. 5. Mildly hydropic gallbladder likely due to fasting state and reactive inflammation of the duodenum.
[2018-02-05] MEDS: GABAPENTIN 300 MG CAP PO SCH (21:08)
[2018-02-05 23:00] VITALS: RESP 20
[2018-02-06] MEDS: MEROPENEM 1 GM in SODIUM CHLORIDE 0.9% 100 ML IVPB SCH ×2 (00:36→08:23)
--- NOTE | 2018-02-06 01:22 | P.PN ---
Subjective Progress Note Date: 02/04/18 Principal diagnosis: Acute Pancreatitis Patient 72-year-old male presenting to the emergency room today by EMS, with chief complaint of symptoms of nausea vomiting started approximately midnight. Does admit to eating out last night. States woke up approximately midnight with feeling nauseous. States had approximately 3 or 4 episodes of vomiting. States he had a small amount of diarrhea. Patient does admit to cramping throughout the abdomen. Patient denies any other complaints at this time. Patient denies any recent fever, chills, shortness of breath, chest pain, back pain, numbness or tingling, dysuria or hematuria, constipation, headaches or visual changes, or any other complaints. ABDOMEN ULTRASOUND DEMONSTRATES A HEPATIC CYST WITH NO DEFINITIVE EVIDENCE OF GALLSTONE. 01/30/2018 Patient is still having epigastric abdominal pain. Improved compared to yesterday. Lipase level is trending down as well. Otherwise patient was found have significant leukocytosis at 43.1 which is trending down to 39.8 today. He was started on Zosyn empirically. T-max today's 101.4 CT abdomen showed extensive PD pancreatic inflammatory changes and small amount of fluid. Intermittently change also involves the duodenum therefore peptic ulcer disease would also be in differential diagnosis. Patient is being followed by GI and ID at this time. Patient is nothing by mouth. Continued on IV fluids and pain medications. Of chest pain or shortness of breath. 01/31/2018 Patient was confused last night and was hypoxic. D-dimer was elevated and CTA chest was done showed no evidence of pulmonary embolism. Pleural effusions and small pericardial effusion and mild basilar pulmonary infiltrates and atelectasis was noted. CT head showed no acute intracranial process. WBC count is trending down to 32.7 today. lipase level is trending down as well. Abdominal pain otherwise improved. Patient will be started on clear liquids. GI is planning for EGD likely tomorrow to evaluate for peptic ulcer disease. Patient is afebrile today otherwise Currently on antibiotics in the form of Zosyn and metronidazole. Patient is confused at times. Denied any chest pain. No nausea vomiting. No diarrhea. 02/01/2018 Patient is more awake and oriented today. WBC count is trending down to 26.1. Otherwise tolerating oral diet. No complaints of abdominal pain. No nausea vomiting. No chest pain or shortness of breath. GI is planning for endoscopy next 24-48 hours. Patient was seen by neurology and thought confusion is most likely secondary to sepsis and possible EtOH withdrawal was suspected as well.. EEG was ordered to rule out seizures. 02/02/2018 Patient is awake and oriented. Tolerating liquid diet and advance as tolerated. Otherwise patient did improve symptomatically and no commerce abdominal pain. Pelvis record is trending down to 20 today. Otherwise GI deferred by for endoscopy when the hospital with clinical improvement. Recommend outpatient follow with GI clinic in 1-2 weeks. Otherwise hemoglobin is stable. Advance diet as tolerated. No complains of chest pain or shortness of breath. Anticipate discharged to home and follow-up as an outpatient. Possible discharge in next 24 hours. 02/03/2018 Patient is awake alert and oriented. Otherwise patient still requiring oxygen with another cannula. Repeat chest x-ray today showed either atelectasis of fluid thickening the minor fissure and small left effusion. Prominent volume loss in the right lung base. Underlying infiltrate cannot be excluded Otherwise WBC improved to 17.5 today. Denied any nausea or vomiting. Abdominal pain is much improved. GI is planning for scope as an outpatient. Patient will be continued on incentive spirometry. 02/04/2018 Patient did improve symptomatically. Otherwise patient is still requiring oxygen with another cannula. Chest x-ray showed small pleural effusions. Patient was given a dose of IV Lasix and continue to monitor and oxygen therapy. Home oxygen evaluation upon discharge All other review of systems negative except the above Active Medications Acetaminophen (Tylenol Tab) 650 mg PO Q6HR PRN PRN Reason: Mild Pain or Fever > 100.5 Last Admin: 01/29/18 23:20 Dose: 650 mg Hydrocodone Bitart/Acetaminophen ([place] 5-325) 1 each PO Q4HR PRN PRN Reason: Moderate Pain Last Admin: 01/31/18 09:42 Dose: 1 each Gabapentin (Neurontin) 300 mg PO HS [facility] Last Admin: 01/30/18 20:48 Dose: 300 mg Haloperidol Lactate (Haldol) 5 mg IM Q6HR PRN PRN Reason: Delirium Heparin Sodium (Porcine) (Heparin) 5,000 unit SQ Q12HR [facility] Last Admin: 01/31/18 07:10 Dose: 5,000 unit Metronidazole 500 mg/ IV (Solution) 100 mls @ 100 mls/hr IVPB Q6HR [facility] Last Admin: 01/31/18 11:12 Dose: 100 mls/hr Piperacillin/Tazobactam/ (Dextrose 3.375 gm/ IV Solution) 50 mls @ 12.5 mls/hr IVPB Q8H [facility] Last Admin: 01/31/18 09:41 Dose: 12.5 mls/hr Sodium Chloride (Saline 0.9%) 1,000 mls @ 125 mls/hr IV .Q8H [facility] Last Admin: 01/31/18 14:49 Dose: 125 mls/hr Lorazepam (Ativan) 1 mg IV Q6HR PRN PRN Reason: Anxiety Morphine Sulfate (Morphine Sulfate (Inj)) 4 mg IV Q4HR PRN PRN Reason: Severe Pain Last Admin: 01/30/18 20:48 Dose: 4 mg Naloxone HCl (Narcan) 0.2 mg IV Q2M PRN PRN Reason: Opioid Reversal Ondansetron HCl (Zofran) 4 mg IVP Q8HR PRN PRN Reason: Nausea And Vomiting Last Admin: 01/29/18 00:14 Dose: 4 mg Pantoprazole Sodium (Protonix) 40 mg IVP DAILY [facility] Last Admin: 01/31/18 07:11 Dose: 40 mg Objective - Vital Signs Vital signs: Vital Signs Temp 97.9 F 02/04/18 14:45 Pulse 100 02/04/18 14:45 Resp 16 02/04/18 14:45 BP 101/66 02/04/18 14:45 Pulse Ox 91 L 02/04/18 14:45 Intake & Output 02/03/18 02/04/18 02/04/18 18:59 06:59 18:59 Intake Total 1200 Output Total 625 Balance 1200 -625 Intake: Oral 1200 Output: Urine 625 Other: Voiding Method Urinal # Voids 3 2 2 - Exam PHYSICAL EXAMINATION: Patient is lying in the bed comfortably, no acute distress, awake alert and oriented. Slightly confused.. HEENT: Normocephalic. Neck is supple. Pupils reactive. Nostrils clear. Oral cavity is moist. Ears reveal no drainage. Neck reveals no JVD, carotid bruits, or thyromegaly. CHEST EXAMINATION: Trachea is central. Symmetrical expansion. Diminished bibasilar air entry. Lung blakely clear to auscultation and percussion. CARDIAC: Normal S1, S2 with no gallops. No murmurs ABDOMEN: Soft. Epigastric mild tenderness. No guarding no rigidity. Bowel sounds normal. No organomegaly. No abdominal bruits. Extremities: reveal no edema. No clubbing or cyanosis Neurologically awake, alert, oriented x2-3 with well-coordinated movements. No focal deficits noted Skin: No rash or skin lesions. Psychiatric: Cooperative. Nonsuicidal Musculoskeletal: No joint swelling or deformity. Normal range of motion. - Labs CBC & Chem 7: 02/05/18 09:58 02/05/18 09:58 Labs: Abnormal Lab Results - Last 24 Hours (Table) 02/04/18 02/04/18 Range/Units 00:20 06:21 POC Glucose (mg/dL) 124 H 111 H (75-99) mg/dL Microbiology - Last 24 Hours (Table) 01/30/18 00:02 Blood Culture - Preliminary Blood No Growth after 120 hours 01/30/18 00:02 Blood Culture - Preliminary Blood No Growth after 120 hours Assessment and Plan Assessment: Acute hypoxic respiratory failure likely due to pleural effusion and mild basilar pulmonary infiltrate and atelectasis. Improved now.. PE ruled out. Currently still on nasal cannula oxygen. Titrate down to room air. Repeat chest x-ray was done. Acute delirium. Improving clinically.. Unlikely encephalopathy. Acute pancreatitis with significantly elevated lipase level. Etiology unknown. Patient does not have a history of alcohol abuse. Suspected peptic ulcer disease as per CT abdomen Sepsis with Leukocytosis 43.1-->39-8--32.7 --26.1 and fever. Likely due to #1. Afebrile now. On empiric antibiotics with Zosyn and Flagyl Hyperglycemia LDL 22 and triglyceride level 45 Remote history of smoking DVT prophylaxis Plan: Patient will be continued on pain medications. Encourage oral intake. Will hold IV fluids. Continue with the Protonix IV. GI is planning for EGD as an outpatient. .Monitor CBC and BMP tomorrow. Incentive spirometry. Continue with antibiotics and further recommendations based on the clinical course. GI and pulmonary is following. Time with Patient: Greater than 30
--- NOTE | 2018-02-06 01:26 | P.PN ---
Subjective Progress Note Date: 02/05/18 Principal diagnosis: Acute Pancreatitis Patient 72-year-old male presenting to the emergency room today by EMS, with chief complaint of symptoms of nausea vomiting started approximately midnight. Does admit to eating out last night. States woke up approximately midnight with feeling nauseous. States had approximately 3 or 4 episodes of vomiting. States he had a small amount of diarrhea. Patient does admit to cramping throughout the abdomen. Patient denies any other complaints at this time. Patient denies any recent fever, chills, shortness of breath, chest pain, back pain, numbness or tingling, dysuria or hematuria, constipation, headaches or visual changes, or any other complaints. ABDOMEN ULTRASOUND DEMONSTRATES A HEPATIC CYST WITH NO DEFINITIVE EVIDENCE OF GALLSTONE. 01/30/2018 Patient is still having epigastric abdominal pain. Improved compared to yesterday. Lipase level is trending down as well. Otherwise patient was found have significant leukocytosis at 43.1 which is trending down to 39.8 today. He was started on Zosyn empirically. T-max today's 101.4 CT abdomen showed extensive PD pancreatic inflammatory changes and small amount of fluid. Intermittently change also involves the duodenum therefore peptic ulcer disease would also be in differential diagnosis. Patient is being followed by GI and ID at this time. Patient is nothing by mouth. Continued on IV fluids and pain medications. Of chest pain or shortness of breath. 01/31/2018 Patient was confused last night and was hypoxic. D-dimer was elevated and CTA chest was done showed no evidence of pulmonary embolism. Pleural effusions and small pericardial effusion and mild basilar pulmonary infiltrates and atelectasis was noted. CT head showed no acute intracranial process. WBC count is trending down to 32.7 today. lipase level is trending down as well. Abdominal pain otherwise improved. Patient will be started on clear liquids. GI is planning for EGD likely tomorrow to evaluate for peptic ulcer disease. Patient is afebrile today otherwise Currently on antibiotics in the form of Zosyn and metronidazole. Patient is confused at times. Denied any chest pain. No nausea vomiting. No diarrhea. 02/01/2018 Patient is more awake and oriented today. WBC count is trending down to 26.1. Otherwise tolerating oral diet. No complaints of abdominal pain. No nausea vomiting. No chest pain or shortness of breath. GI is planning for endoscopy next 24-48 hours. Patient was seen by neurology and thought confusion is most likely secondary to sepsis and possible EtOH withdrawal was suspected as well.. EEG was ordered to rule out seizures. 02/02/2018 Patient is awake and oriented. Tolerating liquid diet and advance as tolerated. Otherwise patient did improve symptomatically and no commerce abdominal pain. Pelvis record is trending down to 20 today. Otherwise GI deferred by for endoscopy when the hospital with clinical improvement. Recommend outpatient follow with GI clinic in 1-2 weeks. Otherwise hemoglobin is stable. Advance diet as tolerated. No complains of chest pain or shortness of breath. Anticipate discharged to home and follow-up as an outpatient. Possible discharge in next 24 hours. 02/03/2018 Patient is awake alert and oriented. Otherwise patient still requiring oxygen with another cannula. Repeat chest x-ray today showed either atelectasis of fluid thickening the minor fissure and small left effusion. Prominent volume loss in the right lung base. Underlying infiltrate cannot be excluded Otherwise WBC improved to 17.5 today. Denied any nausea or vomiting. Abdominal pain is much improved. GI is planning for scope as an outpatient. Patient will be continued on incentive spirometry. 02/04/2018 Patient did improve symptomatically. Otherwise patient is still requiring oxygen with another cannula. Chest x-ray showed small pleural effusions. Patient was given a dose of IV Lasix and continue to monitor and oxygen therapy. Home oxygen evaluation upon discharge. 02/05/2018 Patient denied any complaints of chest pain. Still requiring oxygen with another cannula. Saturating at 86% with ambulation Patient developed fever with T-max 100.7 and also worsening leukocytosis today. Repeat CT of abdomen pelvis was ordered showed progression to severe diffuse pancreatitis with extensive interstitial edema. Antibiotics have been changed to meropenem. ID is following. Abdominal pain otherwise slightly improved. No nausea vomiting. Tolerating liquids. No chest pain or shortness of breath. All other review of systems negative except the above Active Medications Generic Name Dose Route Start Last Admin Trade Name Freq PRN Reason Stop Dose Admin Acetaminophen 650 mg 01/28/18 13:01 02/01/18 19:09 Tylenol Tab PO 650 mg Q6HR PRN Administration Mild Pain or Fever > 100.5 Hydrocodone Bitart/Acetaminophen 1 each 01/28/18 13:01 02/01/18 22:29 Weed 5-325 PO 1 each Q4HR PRN Administration Moderate Pain Gabapentin 300 mg 01/28/18 21:00 02/05/18 21:08 Neurontin PO 300 mg HS [facility] Administration Haloperidol Lactate 5 mg 01/31/18 14:36 Haldol IM Q6HR PRN Delirium Heparin Sodium (Porcine) 5,000 unit 01/31/18 09:00 02/05/18 21:08 Heparin SQ 5,000 unit Q12HR MATT Administration Meropenem 1 gm/ Sodium 100 mls @ 200 mls/hr 02/06/18 00:00 02/06/18 00:36 Chloride IVPB 200 mls/hr Q8HR MATT Administration Iopamidol 30 ml 02/05/18 13:45 Isovue-300 30 Ml (For Oral Use) PO 02/06/18 13:[address] Scan Lorazepam 1 mg 01/31/18 12:50 02/01/18 03:10 Ativan IV 1 mg Q6HR PRN Administration Anxiety Metronidazole 500 mg 02/04/18 16:00 02/05/18 21:10 Flagyl PO 500 mg TID [facility] Administration Morphine Sulfate 4 mg 01/28/18 13:01 01/30/18 20:48 Morphine Sulfate (Inj) IV 4 mg Q4HR PRN Administration Severe Pain Naloxone HCl 0.2 mg 01/28/18 13:01 Narcan IV Q2M PRN Opioid Reversal Ondansetron HCl 4 mg 01/28/18 13:01 01/29/18 00:14 Zofran IVP 4 mg Q8HR PRN Administration Nausea And Vomiting Pantoprazole Sodium 40 mg 02/06/18 07:30 Protonix PO AC-BRKFST [facility] Objective - Vital Signs Vital signs: Vital Signs Temp 99.1 F 02/05/18 15:00 Pulse 83 02/05/18 15:00 Resp 17 02/05/18 15:00 BP 145/76 02/05/18 15:00 Pulse Ox 92 L 02/05/18 20:16 Intake & Output 02/05/18 02/05/18 02/06/18 06:59 18:59 06:59 Intake Total 480 Output Total 625 Balance -625 480 Intake: Oral 480 Output: Urine 625 Other: # Voids 2 3 # Bowel Movements 0 1 - Exam PHYSICAL EXAMINATION: Patient is lying in the bed comfortably, no acute distress, awake alert and oriented. Slightly confused.. HEENT: Normocephalic. Neck is supple. Pupils reactive. Nostrils clear. Oral cavity is moist. Ears reveal no drainage. Neck reveals no JVD, carotid bruits, or thyromegaly. CHEST EXAMINATION: Trachea is central. Symmetrical expansion. Diminished bibasilar air entry. Lung blakely clear to auscultation and percussion. CARDIAC: Normal S1, S2 with no gallops. No murmurs ABDOMEN: Soft. Epigastric mild tenderness. No guarding no rigidity. Bowel sounds normal. No organomegaly. No abdominal bruits. Extremities: reveal no edema. No clubbing or cyanosis Neurologically awake, alert, oriented x2-3 with well-coordinated movements. No focal deficits noted Skin: No rash or skin lesions. Psychiatric: Cooperative. Nonsuicidal Musculoskeletal: No joint swelling or deformity. Normal range of motion. - Labs CBC & Chem 7: 02/05/18 09:58 02/05/18 09:58 Labs: Abnormal Lab Results - Last 24 Hours (Table) 02/05/18 02/05/18 02/05/18 Range/Units 09:58 09:58 09:58 WBC 21.1 H (3.8-10.6) k/uL RBC 3.91 L (4.30-5.90) m/uL Hgb 12.3 L (13.0-17.5) gm/dL Hct 36.7 L (39.0-53.0) % Neutrophils # 18.6 H (1.3-7.7) k/uL Lymphocytes # 0.3 L (1.0-4.8) k/uL Monocytes # 1.4 H (0-1.0) k/uL Sodium 136 L (137-145) mmol/L Potassium 3.0 L* (3.5-5.1) mmol/L Chloride 97 L (98-107) mmol/L Carbon Dioxide 33 H (22-30) mmol/L Glucose 128 H (74-99) mg/dL Calcium 7.2 L (8.4-10.2) mg/dL Amylase <30 L (30-110) U/L Microbiology - Last 24 Hours (Table) 01/30/18 00:02 Blood Culture - Final Blood No Growth after 144 hours 06/19/18 00:02 Blood Culture - Final Blood No Growth after 144 hours Assessment and Plan Assessment: Acute hypoxic respiratory failure likely due to pleural effusion and mild basilar pulmonary infiltrate and atelectasis. Improved now.. PE ruled out. Currently still on nasal cannula oxygen. Titrate down to room air. Repeat chest x-ray was done. Acute delirium. Improving clinically.. Unlikely encephalopathy. Acute pancreatitis with significantly elevated lipase level. Etiology unknown. Patient does not have a history of alcohol abuse. Extensive pancreatic interstitial edema with pseudocyst Suspected peptic ulcer disease as per CT abdomen Sepsis with Leukocytosis 43.1-->39-8--32.7 --26.1--17 --21 and fever. Likely due to #1. On abx in the form of meropenem and Flagyl Hyperglycemia LDL 22 and triglyceride level 45 Remote history of smoking DVT prophylaxis Plan: Patient will be continued on pain medications. Encourage oral intake. Will hold IV fluids. Continue with the Protonix IV. GI is planning for EGD as an outpatient. .Monitor CBC and BMP tomorrow. Incentive spirometry. Continue with antibiotics and further recommendations based on the clinical course. GI and pulmonary is following. Time with Patient: Greater than 30
[2018-02-06] MEDS: ACETAMINOPHEN TAB 325 MG TAB PO PRN (04:00)
--- NOTE | 2018-02-06 04:24 | PN ---
PROGRESS NOTE DATE OF SERVICE: 02/05/2018. REASON FOR FOLLOWUP: Acute pancreatitis with sepsis. INTERVAL HISTORY: The patient's clinical course complicated by development of low-grade fever last night of 100.2 with 100.7 this morning. The patient denies having any chest pain or shortness of breath or cough. No nausea, vomiting, or worsening abdominal pain or any diarrhea. REVIEW OF SYSTEMS: Positive for low-grade fevers and chills and rest of systems negative. PAST MEDICAL AND SURGICAL HISTORY: Reviewed. No change in medication, reviewed. EXAMINATION: Blood pressure is 145/76 with a pulse of 83, temperature 98.1, T-max 100.7. He is 96% on 2 L nasal cannula. General description is an elderly male lying in bed in no distress. HEENT EXAMINATION: No pallor or scleral icterus. Oral mucosa membrane dry. NECK: Trachea central. No thyromegaly. LUNGS: Unlabored breathing. Clear to auscultation anteriorly. HEART: S1, S2. Regular rate and regular. ABDOMEN: Soft, mildly distended. No guarding, rigidity. EXTREMITIES: No edema of the feet. LABS: Hemoglobin is 12.1, white count .1 with BUN of 14, creatinine 0.90. A CT of abdomen and pelvis was done this afternoon after noticed to have a low-grade fever and elevated white count, which did show a significant worsening of his pancreatitis, which now involves the whole pancreas with fluid collection. DIAGNOSTIC IMPRESSION AND PLAN: Patient has severe pancreatitis, now with significant worsening on medical therapy. The patient will be made n.p.o. to prevent further worsening of his pancreatitis and may benefit from parenteral nutrition. We will obtain blood cultures, discontinue Zosyn and start the patient on meropenem, hold discharge. Overall prognosis remains to be guarded. The service should be informed about worsening of his condition. This was discussed with the RN. Continue supportive care. MMODL / IJN: [id number] /
[2018-02-06] MEDS ORDERED: PANTOPRAZOLE 40 MG TABLET PO SCH (07:30)
[2018-02-06] MEDS: metroNIDAZOLE 500 MG TAB PO SCH (08:23)
[2018-02-06] MEDS: HEPARIN SODIUM,PORCINE 5,000 UNIT/ML 1 ML VIAL SQ SCH (08:23)
[2018-02-06 08:46] LABS: Basophils % (A) 0 %; Eosinophils # (A) 0.4 k/uL (0-0.7); Eosinophils % (A) 2 %; HGB 11.9 gm/dL (13.0-17.5); Lymphocytes # (A) 0.6 k/uL (1.0-4.8); Lymphocytes % (A) 3 %; MCH 30.6 pg (25.0-35.0); MCV 92.6 fL (80.0-100.0); Mean Platelet Volume 6.8; Monocytes # (A) 0.8 k/uL (0-1.0); Monocytes % (A) 3 %; Neutrophils # (A) 22.8 k/uL (1.3-7.7); Neutrophils % (A) 92 %; Platelet Count 406 k/uL (150-450); Poikilocytosis Slight; RBC 3.89 m/uL (4.30-5.90); RDW 14.8 % (11.5-15.5); WBC 24.8 k/uL (3.8-10.6)
[2018-02-06 09:08] LABS: Calcium 7.2 mg/dL (8.4-10.2); Total Bilirubin 0.4 mg/dL (0.2-1.3); Total Protein 4.2 g/dL (6.3-8.2)
[2018-02-06] MEDS ORDERED: Potassium Replacement Protocol 1 EACH MISC MISCELLANE PRN (09:31)
[2018-02-06] MEDS ORDERED: POTASSIUM CHLORIDE ER 20 MEQ TAB.ER PO SCH (10:00)
[2018-02-06] MEDS: POTASSIUM CHLORIDE 20 MEQ in WATER FOR INJECTION 1 100ML.BAG IVPB SCH ×2 (10:43→13:09)
[2018-02-06] MEDS ORDERED: SODIUM CHLORIDE 0.9% 1,000 ML IV SCH (11:15)
--- NOTE | 2018-02-06 11:29 | P.PN ---
Subjective Progress Note Date: 02/06/18 Principal diagnosis: Severe pancreatitis T-max 100.7. WBC 24,000. CT reported worsening pancreatic inflammation. Mild abdominal pain. Lipase 152. Objective - Vital Signs Vital signs: Vital Signs Temp 97.8 F 02/06/18 08:22 Pulse 92 02/06/18 05:30 Resp 20 02/06/18 05:30 BP 119/59 02/06/18 05:30 Pulse Ox 93 L 02/06/18 05:30 Intake & Output 02/05/18 02/06/18 02/06/18 18:59 06:59 18:59 Intake Total 480 Balance 480 Intake: Oral 480 Other: Voiding Method Urinal # Voids 3 1 # Bowel Movements 1 1 1 - Exam General appearance: The patient is alert 3 no acute distress. HET: Head is normocephalic and atraumatic. Pupils are equal and reactive. Oropharynx is clear without lesions. Neck: Supple without lymphadenopathy. Trachea midline. Heart: S1 S2. Regular rate and rhythm. Lungs: No crackles or wheezes are heard. Abdomen: Soft, very mild midepigastric tenderness, nondistended with bowel sounds. No peritoneal signs. No palpable organomegaly or masses. Extremities: Normal skin color and turgor. No cyanosis, rash, ulceration, clubbing, or edema. Radial and pedal pulses are 2/4 bilaterally. Neurological: No focal deficits. Strength and sensation are grossly intact. - Labs CBC & Chem 7: 02/06/18 08:22 02/06/18 08:22 Labs: Abnormal Lab Results - Last 24 Hours (Table) 02/05/18 02/05/18 02/06/18 Range/Units 09:58 09:58 08:22 WBC 21.1 H 24.8 H (3.8-10.6) k/uL RBC 3.91 L 3.89 L (4.30-5.90) m/uL Hgb 12.3 L 11.9 L (13.0-17.5) gm/dL Hct 36.7 L 36.0 L (39.0-53.0) % Neutrophils # 18.6 H 22.8 H (1.3-7.7) k/uL Lymphocytes # 0.3 L 0.6 L (1.0-4.8) k/uL Monocytes # 1.4 H (0-1.0) k/uL Potassium (3.5-5.1) mmol/L Chloride (98-107) mmol/L Carbon Dioxide (22-30) mmol/L Calcium (8.4-10.2) mg/dL Total Protein (6.3-8.2) g/dL Albumin (3.5-5.0) g/dL Amylase <30 L (30-110) U/L 02/06/ Range/Units 08:22 WBC (3.8-10.6) k/uL RBC (4.30-5.90) m/uL Hgb (13.0-17.5) gm/dL Hct (39.0-53.0) % Neutrophils # (1.3-7.7) k/uL Lymphocytes # (1.0-4.8) k/uL Monocytes # (0-1.0) k/uL Potassium 3.0 L* (3.5-5.1) mmol/L Chloride 97 L (98-107) mmol/L Carbon Dioxide 36 H (22-30) mmol/L Calcium 7.2 L (8.4-10.2) mg/dL Total Protein 4.2 L (6.3-8.2) g/dL Albumin 2.0 L (3.5-5.0) g/dL Amylase (30-110) U/L Assessment and Plan (1) Acute pancreatitis Narrative/Plan: Severe sepsis etiology of pancreatitis is unclear with worsening leukocytosis Current Visit: Yes Status: Acute Code(s): K85.90 - ACUTE PANCREATITIS WITHOUT NECROSIS OR INFECTION, UNSP SNOMED Code(s): 473600295 (2) Confusion Narrative/Plan: Resolved Current Visit: Yes Status: Acute Code(s): R41.0 - DISORIENTATION, UNSPECIFIED SNOMED Code(s): 627123009 Plan: 1. Considering patient has increasing leukocytosis low-grade fevers and CT reporting worsening pancreatic inflammation despite antibiotic therapy [facility] was discussed and advised for higher level of care. An underlying pancreatic necrosis infection cannot be entirely excluded. Patient is agreeable with this plan a care and is consenting to transfer. General surgical consult was offered but patient declines at this time. Continue with nothing by mouth status. IV hydration IV antibiotics GI prophylaxis. Assessment and plan a care discussed with Dr. King
[2018-02-06 15:03] VITALS: BP 145/69; PULSE 93; TEMP 99.7
--- NOTE | 2018-02-06 15:19 | PN ---
PROGRESS NOTE DATE OF SERVICE: 02/06/2018 REASON FOR FOLLOWUP: Acute severe pancreatitis. INTERVAL HISTORY: The patient did have a low-grade fever of 100.4 early this morning, repeat is 97.8. The patient denies having any chest pain or shortness of breath or cough. No nausea, vomiting, abdominal pain, no worsening, no diarrhea. PHYSICAL EXAMINATION: Blood pressure is 119/59 with a pulse of 90, temperature 98.7, he is 93% on 4 L nasal cannula. General description is an elderly male, lying in bed in no distress. RESPIRATORY SYSTEM: Unlabored breathing, clear to auscultation anteriorly. HEART: S1, S2. Regular rate and rhythm. ABDOMEN: Soft, no tenderness. No guarding, no rigidity. EXTREMITIES: No edema of the feet. LABS: Hemoglobin is 11.9, white count of 4.8 with a BUN of 12, creatinine 1.0. DIAGNOSTIC IMPRESSION AND PLAN: Patient with severe pancreatitis, failing medical therapy with worsening of pancreatitis on the repeat CT. Some fluid collection with low-grade fever and elevated white count. The patient antibiotic was adjusted to meropenem 1 g every 8 hours yesterday that will be continued. Patient has been transferred to tertiary care for further management. All his questions and concerns were answered. MMODL / IJN: [id number] /
== END 2018-02-06 15:31 | disposition short-term general hospital (02) | DRG 438 ==
LOC: EC 08:54 → 4MS4W 12:58
PROVIDERS: ADMIT Hospitalist; ATTEND Hospitalist
DX: K85.90 Acute pancreatitis without necrosis or infection, unspecified (principal); A41.9 Sepsis, unspecified organism; R65.20 Severe sepsis without septic shock; J96.01 Acute respiratory failure with hypoxia; J90 Pleural effusion, not elsewhere classified; E78.5 Hyperlipidemia, unspecified; K76.89 Other specified diseases of liver; F41.9 Anxiety disorder, unspecified; M13.0 Polyarthritis, unspecified; R79.1 Abnormal coagulation profile; Z79.899 Other long term (current) drug therapy; Z88.0 Allergy status to penicillin; Z87.891 Personal history of nicotine dependence; Z86.14 Personal history of Methicillin resistant Staphylococcus aureus infection
CPT/HCPCS: 36415; 36600; 70450; 71045; 71275; 74018; 74160; 74177; 76705; 80048; 80053; 80061; 80076; 80306; 81001; 81003; 82150; 82805; 83036; 83605; 83690; 83735; 84075; 85025; 85379; 85610; 85730; 87040; 87086; 93970; 95816; 96361; 96365; 96375; 96376; 99285

== ENCOUNTER → 2020-10-26 | Outpatient (CLI) | payer MEDICARE, OTHER ==
--- NOTE | 2020-10-26 15:49 | CT ---
EXAMINATION TYPE: CT brain wo/w con DATE OF EXAM: 10/26/2020 COMPARISON: CT brain January 31, 2018 HISTORY: visual changes CT DLP: 2059.8 mGycm Automated exposure control for dose reduction was used. CONTRAST: CT scan of the head is performed without and with IV Contrast, patient injected with 100 mL of Isovue 300. FINDINGS: Noncontrast images show no acute hemorrhage or midline shift. Mild ventricular and sulcal prominence. Mild low attenuation in the periventricular white matter. Postcontrast images show no suspicious en hancing intraparenchymal mass. Suprasellar cistern is maintained. The globes are intact and the visua lized sinuses are clear. IMPRESSION: Mild diffuse cerebral atrophy with mild chronic small vessel ischemic change. No suspicio us enhancement.
== END ==
LOC: RADCTMAIN 14:28
PROVIDERS: ATTEND Ophthalmology
DX: I67.82 Cerebral ischemia (principal)
CPT/HCPCS: 82565; 84520; 70470; 36415; Q9967

== ENCOUNTER 2020-12-23 11:15 | Day surgery (SDC) | payer MEDICARE, OTHER ==
[2020-12-21 12:28] VITALS: BMI 23.7
[~2020-12-23 11:15] MED LIST: LACTATED RINGERS 1,000 ML IV SCH; MOXIFLOXACIN HCL 0.5% DROPS 3 ML BTL OP PRN; TETRACAINE 0.5% OPHTH (PF) DROPS 4 ML BTL OP PRN; TIMOLOL 0.5% OPHTH DROPS 5 ML BTL OP PRN
[2020-12-23] MEDS: CYCLOPENTOLATE 1% OPHTH SOLN 2 ML BTL OP PRN ×2 (12:55→13:02)
[2020-12-23] MEDS: PHENYLEPHRINE 2.5% OPHTH DRP 2ML OP PRN ×2 (12:58→13:07)
[2020-12-23 13:10] VITALS: TEMP 98.5
[2020-12-23] MEDS ORDERED: MIDAZOLAM 2 MG/2 ML VIAL ONE (13:41)
[2020-12-23] MEDS ORDERED: fentaNYL (PF) 50 MCG/ML 2 ML AMP ONE (13:41)
[2020-12-23] MEDS ORDERED: HYALURONATE SODIUM INTRAOCULAR 1 EACH SYRINGE (12MG/ML) INTRAOCULA ONE (13:59)
[2020-12-23] MEDS ORDERED: BALANCED SALT IRRIG SOLN COMB2 15 ML IRRIG.SOLN INTRAOCULA ONE (14:00)
[2020-12-23] MEDS ORDERED: LIDOCAINE 1% (PF) 10MG/ML VIAL SQ ONE (14:00)
[2020-12-23] MEDS ORDERED: EPINEPHrine (PF) 0.3 ML in BALANCED SALT IRRIG SOLN COMB2 500 ML IRRIGATION ONE (14:01)
--- NOTE | 2020-12-23 14:15 | P.OP ---
Date of Procedure: 12/23/20 Preoperative Diagnosis: NS & CS Postoperative Diagnosis: same Procedure(s) Performed: PIOL< OD Implants: MX60E 23.00 Anesthesia: MAC Surgeon: Behzad Jung Pathology: none sent Condition: stable Disposition: same day Indications for Procedure: blurry vision Operative Findings: no complications
[2020-12-23 14:46] VITALS: BP 134/77; PULSE 74; RESP 18
--- NOTE | 2020-12-24 06:14 | OP ---
OPERATIVE REPORT DATE OF SERVICE: 12/23/2020. SURGEON: Dr. 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 POSTOPERATIVE DIAGNOSIS: Nuclear sclerosis. Cortical sclerosis. OPERATION: Clear cornea phacoemulsification of cataract right OD eye. ESTIMATED BLOOD LOSS: Zero. SPECIMEN TAKEN: None. NARRATIVE: After obtaining the appropriate consent, the patient was brought to the Operating Room where the patient was placed under cardiac monitoring and prepped and draped in the usual sterile manner. At the 11 o'clock position a 15 degree super sharp blade was used to create a paracentesis followed by instillation of 1% Xylocaine MPF 50:50 mix with BSS into the anterior chamber. This was followed by Duovisc to stabilize the anterior chamber. At the 9 o'clock position a self-sealing corneal flap incision was created using 2.8 mm jignesh keratome. A cystotome was used to initiate a continuous tear capsulorrhexis which was completed with the Utrata forceps. A Binkhorst cannula was used to hydrodissect the lens nucleus followed by hydrodelineation. Phacoemulsification of the lens was performed utilizing phaco-chop in 19.91 seconds at 17% power. The remaining cortical material was removed using the irrigation aspiration mode followed by additional 1% Xylocaine MPF into the anterior chamber followed by viscoelastic to stabilize the capsular bag. A [employer] MX 60E 23.0 diopter posterior chamber lens was placed into the capsular bag without difficulty. The remaining viscoelastic material was removed from the anterior chamber with the irrigation/aspiration. Balanced salt solution was used to normalize the intraocular pressure. The incision was checked for watertight integrity. The patient then received two drops of 0.5% timolol followed by two drops Vigamox, was lightly patched and shielded in the usual manner. There were no complications from the procedure. The patient tolerated the procedure well and was returned to recovery in good condition. MMODL / IJN: [id number] /
== END 2020-12-23 15:03 | disposition home or self-care (01) ==
LOC: OR 11:15
PROVIDERS: ATTEND Ophthalmology
DX: H25.13 Age-related nuclear cataract, bilateral (principal); H53.461 Homonymous bilateral field defects, right side; H25.013 Cortical age-related cataract, bilateral; H52.13 Myopia, bilateral; H52.4 Presbyopia; I10 Essential (primary) hypertension; E78.5 Hyperlipidemia, unspecified; R73.03 Prediabetes; Z79.899 Other long term (current) drug therapy; Z88.0 Allergy status to penicillin
CPT/HCPCS: 66984; C1780; J2250; J0171; J3010; J2001

== ENCOUNTER 2021-01-06 11:15 | Day surgery (SDC) | payer OTHER ==
[2021-01-05 09:38] VITALS: BMI 23.7
[~2021-01-06 11:15] MED LIST changes: +CYCLOPENTOLATE 1% OPHTH SOLN 2 ML BTL OP PRN; +LIDOCAINE 1% (10MG/ML) FOR IV START INTRADERMA PRN; +ONDANSETRON 4 MG/2 ML VIAL IVP PRN; +PHENYLEPHRINE 2.5% OPHTH DRP 2ML OP PRN
[2021-01-06 12:53] VITALS: RESP 16; TEMP 98.5
[2021-01-06] MEDS ORDERED: fentaNYL (PF) 50 MCG/ML 2 ML AMP ONE (13:38)
[2021-01-06] MEDS ORDERED: LIDOCAINE 1% (PF) 10MG/ML VIAL MISCELLANE ONE (13:52)
[2021-01-06] MEDS ORDERED: HYALURONATE SODIUM INTRAOCULAR 1 EACH SYRINGE (12MG/ML) INTRAOCULA ONE ×2 (13:52→14:01)
[2021-01-06] MEDS ORDERED: BALANCED SALT IRRIG SOLN COMB2 15 ML IRRIG.SOLN IRRIGATION ONE ×2 (13:52→14:02)
[2021-01-06] MEDS ORDERED: EPINEPHrine (PF) 0.3 ML in BALANCED SALT IRRIG SOLN COMB2 500 ML IRRIGATION ONE (14:01)
[2021-01-06] MEDS ORDERED: LIDOCAINE (PF) 10 MG/ML 5ML AMP MISCELLANE ONE (14:02)
--- NOTE | 2021-01-06 14:14 | P.OP ---
Date of Procedure: 01/06/21 Preoperative Diagnosis: NS & CS Postoperative Diagnosis: same Procedure(s) Performed: PIOL, OS Implants: MX60E 24.00 Anesthesia: MAC Surgeon: Behzad Jung Pathology: none sent Condition: stable Disposition: same day Indications for Procedure: blurry vision Operative Findings: no complications
[2021-01-06 14:27] VITALS: BP 144/88
[2021-01-06 14:43] VITALS: PULSE 65
--- NOTE | 2021-01-07 10:24 | OP ---
OPERATIVE REPORT DATE OF SURGERY: January 06, 2021. SURGEON: Dr. Behzad Jung PREOPERATIVE DIAGNOSES: Nuclear sclerosis, cortical sclerosis. POSTOPERATIVE DIAGNOSES: Nuclear sclerosis, cortical sclerosis. OPERATION: Phacoemulsification of cataract and intraocular lens implant to the left eye. ESTIMATED BLOOD LOSS: Zero. SPECIMEN TAKEN: None. NARRATIVE: After obtaining the appropriate consent, the patient was brought to the Operating Room where the patient was placed under cardiac monitoring and prepped and draped in the usual sterile manner. At the 5 o'clock position a 15 degree super sharp blade was used to create a paracentesis followed by instillation of 1% Xylocaine MPF 50:50 mix with BSS into the anterior chamber. This was followed by Amvisc to stabilize the anterior chamber. At the 3 o'clock position a self-sealing corneal flap incision was created using 2.8 mm jignesh keratome. A cystotome was used to initiate a continuous tear capsulorrhexis which was completed with the Utrata forceps. A Binkhorst cannula was used to hydrodissect the lens nucleus followed by hydrodelineation. Phacoemulsification of the lens was performed utilizing phaco chop in 18.82 seconds at 17% power. The remaining cortical material was removed using the irrigation aspiration mode followed by additional 1% Xylocaine MPF into the anterior chamber followed by viscoelastic to stabilize the capsular bag. A [employer] MX60E 24.0 diopters posterior chamber lens was placed into the capsular bag without difficulty. The remaining viscoelastic material was removed from the anterior chamber with the irrigation/aspiration. Balanced salt solution was used to normalize the intraocular pressure. The incision was checked for watertight integrity. The patient then received two drops of 0.5% timolol followed by two drops Vigamox, was lightly patched and shielded in the usual manner. There were no complications from the procedure. The patient tolerated the procedure well and was returned to recovery in good condition. MMODL / IJN: [id number] /
== END 2021-01-06 14:59 | disposition home or self-care (01) ==
LOC: OR 11:15
PROVIDERS: ATTEND Ophthalmology
DX: H25.12 Age-related nuclear cataract, left eye (principal); H25.012 Cortical age-related cataract, left eye; H52.13 Myopia, bilateral; H52.4 Presbyopia; H53.461 Homonymous bilateral field defects, right side; E78.5 Hyperlipidemia, unspecified; R73.03 Prediabetes; Z98.41 Cataract extraction status, right eye; Z96.1 Presence of intraocular lens; Z98.890 Other specified postprocedural states; Z79.899 Other long term (current) drug therapy; Z88.0 Allergy status to penicillin
CPT/HCPCS: 66984; C1780; J0171; J2001; J3010